=== PATIENT | male | born 1950 | race Caucasian/White ===

== ENCOUNTER → 2018-07-13 07:27 | Outpatient (CLI) | payer MEDICARE, OTHER, SELFPAY ==
[2018-07-13 07:44] LABS: Bacteria Urine None Seen; RBC Urine None Seen (0-5/HPF); WBC Urine None Seen (0-5/HPF)
[2018-07-13 09:01] LABS: Add Manual Diff / Slide Review NO; Hematocrit 41.4 % (41-53); Hemoglobin 14.1 g/dL (13.5-17.5); Lymphocytes Percent Auto 32.5 % (25-40); Mean Corpuscular HGB Conc 34.1 % (30-36); Monocytes Percent Auto 14.7 % (3-14); Neutrophils Absolute Auto 1800 /uL (3000-5900); Neutrophils Percent Auto 49.8 % (50-75); Platelet Count 187 X10^3/uL (150-400); Red Blood Cell Count 4.71 X10^6/uL (4.5-5.9); Red Cell Distribution Width 13.7 % (11.6-14.8); White Blood Cell Count 3.6 X10^3/uL (4.5-11.0)
[2018-07-13 09:06] LABS: Appearance Urine UA CLEAR; Bilirubin Urine UA NEGATIVE (NEGATIVE); Color Urine UA YELLOW; Glucose Urine UA NEGATIVE (Normal); Ketones Urine UA NEGATIVE (NEGATIVE); Leukocyte Esterase Urine UA NEGATIVE (NEGATIVE); Nitrite Urine UA Negative (Negative); Occult Blood Urine UA NEGATIVE (Negative); Protein Urine UA NEGATIVE (Negative); Urobilinogen Urine UA 0.2 E.U./dL (0.2); pH Urine UA 6.5 (4.5-8.0)
[2018-07-13 09:14] LABS: Culture Indicated Urine Cult Not Indicated; Urine Comments Microscopic Normal
[2018-07-13 09:21] LABS: Hemoglobin A1C% w Est Avg Glu 5.2 % (4.0-6.0)
[2018-07-13 09:28] LABS: BUN Creatinine Ratio 21.1 (6-22); Blood Urea Nitrogen 19 mg/dL (9-20); Calcium 9.3 mg/dL (8.4-10.2); Carbon Dioxide 30 mmol/L (22-32); Chloride 104 mmol/L (98-107); Estimated Glomerular Filt Rate > 60.0 mL/min (>60); Glucose 91 mg/dL (80-110); HEMOLYSIS < 15 (0-50); Potassium 4.2 mmol/L (3.4-5.1); Sodium 143 mmol/L (137-145)
[2018-07-13 09:47] LABS: Transferrin 218 mg/dL (206-381)
== END ==
PROVIDERS: PCP Internal Medicine; Visit Provider Orthopaedic Surgery
DX: M25.561 Pain in right knee (principal); Z01.812 Encounter for preprocedural laboratory examination; D50.0 Iron deficiency anemia secondary to blood loss (chronic); R73.9 Hyperglycemia, unspecified; N39.0 Urinary tract infection, site not specified; Z01.818 Encounter for other preprocedural examination
CPT/HCPCS: 36415; 80048; 81001; 83036; 84466; 85025; 93005

== ENCOUNTER 2018-09-06 06:10 | Day surgery (SDC) | payer MEDICARE, OTHER, SELFPAY ==
[2018-08-22 08:49] VITALS: BMI 26.9
[2018-09-06] VITALS (18 sets, daily range): BP systolic 74–133; BP diastolic 44–98; PULSE 60–100; RESP 10–18; TEMP 36.3–37; O2SAT 94–100; BMI 26.4; BMI 24.3
--- NOTE | 2018-09-06 06:00 | DI.RAD.S_ITS ---
PROCEDURE: XR KNEE RT 1TO2V INDICATIONS: post operative right knee TECHNIQUE: 2 view(s) of the knee acquired. COMPARISON: [facility], [place], XR KNEE ARTHRITIC SERIES RT, 06/01/2018, 7:59. [facility], [place], KNEE 3V LEFT, 09/26/2012, 10:39. FINDINGS: Bones: Patient is status post knee joint arthroplasty. Hardware components are in expected positions. Visualized bony structures are intact. Soft tissues: Overlying postoperative changes are noted. IMPRESSION: Postoperative changes as above. Dictated by: Sendy Fischer M.D. on 09/06/2018 at 10:39 Approved by: Sendy Fischer M.D. on 09/06/2018 at 10:40
[2018-09-06] MEDS: ACETAMINOPHEN 325 MG TABLET 975 MG PO ×3 (06:54→20:27)
[2018-09-06] MEDS: PREGABALIN 75 MG CAPSULE PO (06:54)
[2018-09-06] MEDS: CELECOXIB 200 MG CAPSULE PO (06:54)
[2018-09-06] MEDS: LACTATED RINGERS 1,000 ML 42 ML IV ×2 (07:05→10:13)
--- NOTE | 2018-09-06 07:43 | PM.PREOP ---
Pre-operative Note Interval Note Pre-op Check: Yes History & Physical Reviewed by Physician and Yes Exam Performed Changes: No
--- NOTE | 2018-09-06 07:59 | PM.OP.1 ---
Operative Date/Time/Diagnoses Date of procedure: 09/06/18 Time of procedure: 09:45 Pre-op diagnosis: Right knee osteoarthritis Post-op diagnosis: same Procedure & Clinicians Procedure: Right total knee replacement Same procedure as scheduled: Yes Indications: The patient has had progressively worsening right knee pain with radiographic changes consistent with arthritis. Non-operative management has failed and the patient has requested total knee replacement. The risks, benefits and alternatives to surgery were discussed with the patient prior to proceeding. Risks discussed included, but were not limited to, failure to relieve pain, stiffness, infection, nerve damage, deep venous thrombosis, pulmonary embolism, stroke, coma, heart attack, permanent paralysis and , as well as the potential need for eventual revision of the prosthetic. Surgeon: Peewee Jenkins Air Conditioning Service Technician: Alison Otero Click Yes if Unassisted: No Anesthesia Type: General, Spinal and Local Operative Notes Findings: Severe lateral and patellofemoral osteoarthritis with moderate medial osteoarthritis. In addition sutures from his prior extensor mechanism repair were evident, both in the patellar cut and in the patellar tendon. Closure Type: primary Specimen(s): none sent Implants & Drains: Implants used in this procedure were manufactured by the [employer] and included the BCS II Journey total knee replacement with a size 8 right Oxinium femoral component, 8 right non porous tibial component, 9 mm cross-linked polyethylene tibial insert, and a 38 mm oval Shayy II patellar component. Applied: implant(s) Estimated Blood Loss (mL): 50 Blood products transfused: none Tourniquet time (min): 64 Procedure in detail: The patient was seen in the pre-operative area, where the patient identified the right knee as the operative site and this was marked with my initials. The patient received pre-operative antibiotics, and was taken to the operating room and placed on the operative table in the supine position. After satisfactory anesthesia, a time study technologist out was performed. The right leg was encircled with a tourniquet about the proximal thigh, and the leg was prepared from the toes to the tourniquet with ChloroPrep in the usual fashion and draped through sterile drapes. The leg was elevated and exsanguinated with Eschmark bandage and the tourniquet inflated to 250 mmHg pressure. The knee was approached through an approximately 18 cm incision centered over the patella and carried into the knee through a medial parapatellar arthrotomy. The anterior osteophytes and soft tissues were removed. The rotational landmarks of Staunton's line and the transepicondylar axis were marked on the femur with electrocautery, and intramedullary guide holes for the femur and tibia were created. The distal femoral cut was made in 6 degrees of valgus using the intramedullary guide at the primary cut setting. The proximal tibial cut was then made using the intramedullary guide, taking 9 mm of bone off the less involved side. The extension gap was checked and the rotation of the femoral component confirmed with the gap balancing system. The anterior, posterior and chamfer cuts were then made. The posterior osteophytes and soft tissues were then removed. The posterior capsule was injected with part of a mixture of 60 ml 0.25% Marcaine mixed with 20 ml Exparel and 4 mg of morphine for post-operative pain control. The remainder of this mixture was injected into the capsule and subcutaneous tissues during cement curing. The tibia was prepared with the rotation set by an extra medullary guide. Trial tibial and femoral components were then placed and the intercondylar notch cut through the femoral trial. Range of motion was 0-135 degrees, with good stability throughout the range. The patella was then cut to accommodate the patellar prosthetic. There was no need for a lateral release. The trials were then removed, and the femoral hole plugged with a bone plug. The bone was prepared with pulsatile lavage, and dried with a sponge. Cement was applied and the final prosthetics placed. Excess cement was removed during and after cement curing. After confirming there was no extruded cement posteriorly, the final tibial insert was placed. The knee was copiously irrigated and the tourniquet deflated. Hemostasis was obtained. The capsule was closed with interrupted # 2 polyester suture. The subcutaneous layer was closed with 3-0 Vicryl, and the skin with a running 3-0 V-Lock suture and SteriStrips. An Aquacel Ag dressing was applied and the patient was taken to recovery having tolerated the procedure well. Complications: none Condition: stable Disposition: PACU Plan for aftercare: The patient will be maintained on a standard total knee replacement protocol with weight bearing as tolerated. The patient will receive aspirin and sequential compression devices for DVT prophylaxis. The patient will be discharged home when safe for the home environment.
[2018-09-06] MEDS: CEFAZOLIN 2 GM/100 ML FROZ.PIGGY IV ×3 (08:05→23:46)
--- NOTE | 2018-09-06 08:34 | SUR.OPER ---
Supine on padded OR bed. Pillow under head, arms secured on padded armboards <90 degree abduction. Safety belt across torso. Non-operative leg secured with tape over blanket over lower leg. Operative leg secured in DeMayo/Wil positioner. Foam padded brace at thigh of operative leg.
[2018-09-06] MEDS: TRANEXAMIC ACID 1,000 MG VIAL 1000 MG INJ ×2 (08:43→09:22)
[2018-09-06] MEDS: BUPIVACAINE LIPOSOME 266 MG/20 ML VIAL INJ (08:44)
[2018-09-06] MEDS: BUPIVACAINE 0.25% W/ EPI VIAL 60 ML INJ (08:44)
[2018-09-06] MEDS: MORPHINE 4 MG/ML INJ IM (08:45)
[2018-09-06] MEDS: fentaNYL 100 MCG/2 ML INJ 50 MCG IV ×2 (10:28→10:43)
[2018-09-06] MEDS: MEPERIDINE 50 MG/ML 25 MG IV (10:37)
--- NOTE | 2018-09-06 10:38 | SUR.PHASEI ---
Pt c/o shaking DR Mcmahon at bedside. Demerol 25mg IV ordered given as ordered.
--- NOTE | 2018-09-06 11:21 | PC.NURSE ---
Alex is stable post-op total R knee. Arrived to room at 1100 alert and awake with accompanying him. States R knee discomfort is 4/10. Ice pack in place. Jaya wrap over drsg. is clean/dry/intact. Alex is able to move foot freely, CMS intact and with easily palpable pedal pulse. Currently resting quietly in bed sipping ice water.
[2018-09-06] MEDS: LACTATED RINGERS 1,000 ML 125 ML IV (13:17)
[2018-09-06] MEDS: IBUPROFEN 400 MG TABLET PO (13:19)
--- NOTE | 2018-09-06 14:10 | PT.IIE ---
Current Diagnoses Bilateral primary osteoarthritis of knee (09/06/18) Surgery Performed Operation Date: 09/06/18 07:45 Actual Procedures p Total Knee Arthroplasty(Right) - Peewee Jenkins MD Surgical History (Last Updated 08/22/18 @ 09:04 by Mandi Warren RN) Hx of tonsillectomy (Acute) S/P cervical spinal fusion (Acute 07/31/16) Medical History (Last Updated 08/22/18 @ 09:22 by Mandi Warren RN) Carpal tunnel syndrome of left wrist (Acute ~03/2017) HTN (hypertension) (Acute) Injury of left Achilles tendon (Acute) Left rotator cuff tear (Acute) Right rotator cuff tear (Acute) Rupture of left patellar tendon (Acute) Seasonal allergies (Acute) Physical Therapy Inpatient Evaluation/Re-Eval M1 PT/OT-IP Prior Functional Status Start: 09/06/18 17:08 Freq: NEEDED Status: Active Protocol: Document 09/06/18 14:10 AB (Rec: 09/06/18 17:18 AB [id number]) Medical Review Prior Functional Status Medical History Reviewed Yes Communication able to make needs known Mobility and Gait stated that he is independent with all mobilities and ambulation without AD Social History Household Members spouse Living Arrangements House Number of Floors (Floors) Two Floors Number of Stairs To Enter/Railing? has 2 steps without rails ot enter; pt stays on main level of the house Home Environment High Toilet Tub/Shower Home Equipment Front Wheel Walker Straight Cane Crutches Grab Bars In Shower M2 PT-IP Current Condition Start: 09/06/18 17:08 Freq: NEEDED Status: Active Protocol: Document 09/06/18 14:10 AB (Rec: 09/06/18 17:18 AB [id number]) Physical Therapy Current Condition Current Condition Evaluation Date 09/06/18 Treatment Diagnosis s/p R TKA; difficulty in walking Onset Date 09/06/18 Weight Bearing Status Weight Bearing Status Weight Bear as Tolerated M3 PT-IP Subjective Start: 09/06/18 17:08 Freq: NEEDED Status: Active Protocol: Document 09/06/18 14:10 AB (Rec: 09/06/18 17:18 AB [id number]) Subjective Physical Therapy Visit Type Type Initial Evaluation Visit Start Time 14:10 Visit Stop Time 15:00 Total Visit Minutes 50 Number of LADLE OPERATOR Visits 0 Physical Therapy Visit Comments Patient Comments pt agreeable to do PT Therapy Pain Assessment Pain When Pain Assessed At Rest Pain Present Pain Present Pain Reported Location Right Knee Intensity 2 Scale Used Numeric (1 - 10) Pain Management Techniques Re-positioning Timing of Activity with Medications M4 PT-IP Mobility and Gait Start: 09/06/18 17:08 Freq: NEEDED Status: Active Protocol: Document 09/06/18 14:10 AB (Rec: 09/06/18 17:18 AB [id number]) PT-Bed Mobility Assessment Supine to Sit Supine to Sit Standby Assistance Sit to Supine Sit to Supine Standby Assistance Scooting Scooting to Edge of Bed Standby Assistance PT-Transfer Assessment Sit to and From Stand Sit to and from Stand Standby Assistance Equipment Transfer Assistive Device Gait Belt Front Wheeled Walker Orthotic/Prosthetic Devices or Brace: No Transfers Transfer Destination Chair Toilet Transfer Technique pt ambulated using FWW for transfers Transfer Ability Level of Assist Standby Assistance Comments Mobility Comments pt requested to use the toilet and ambulated to the toilet using FWW SBA and then ambulated out of the toilet to the chair using FWW SBA. Gait Assessment Gait Gait Assistance Required: Standby Assistance Distance (Feet) 75 Able to Maintain Weight Bearing Status Yes During Gait Assistive Devices Assistive Device Gait Belt Front Wheeled Walker Orthotic/Prosthetic Devices or Brace: No Gait Deviations General Gait Pattern Antalgic Decreased Stride Length Decreased Feet Clearance Factors Limiting Gait Function Factors Limiting Gait Function Decreased Strength Pain Poor Balance Comments Gait Comments pt ambulated in the hallway using FWW SBA towards the stairs. Stair Climbing Assessment Evaluation Level of Assist On Stairs Standby Assistance Contact Guard Assistance Devices Stair Climbing Assistive Devices Straight Cane Technique/Endurance Stair Climbing Direction Ascend and Descend Stair Climbing Technique Step to Step Number of Steps Climbed 3 Query Text: Stair Climbing Set # Repetitions (reps) 2 Comments Stair Climbing Comments pt completed up/down steps using bilateral rails SBA and then using SPC requiring CGA and cues. PT-Balance Assessment Sitting Balance and Reactions Static Sitting Balance Ability Good Dynamic Sitting Balance Ability Good Standing Balance and Reactions Static Standing Balance Ability Fair Dynamic Standing Balance Ability Fair Device Used FWW M5 PT-IP Objective Assessments Start: 09/06/18 17:08 Freq: NEEDED Status: Active Protocol: Document 09/06/18 14:10 AB (Rec: 09/06/18 17:18 AB [id number]) Orientation Orientation/Cognition Level of Alertness Alert Orientation Name Age Birthday Month Date Year Day of Week Place Situation Safety Awareness Understands Safety Issues Memory Description No Deficits Noted Gross Range of Motion Lower Extremity ROM Assessment Within Functional Limits Impairments PROM L knee flexion: ~ 90 deg Strength Lower Extremity Strength Assessment Right Impaired Knee 3+/5 M6 PT-IP Treatment Start: 09/06/18 17:08 Freq: NEEDED Status: Active Protocol: Document 09/06/18 14:10 AB (Rec: 09/06/18 17:18 AB [id number]) Physical Therapy Treatment Exercises Exercises Ankle Pumps Heel Slides Education Education Provided Precautions Weight Bearing Status Post-Op Packet Safety M7 PT-IP Assessment and Plan Start: 09/06/18 17:08 Freq: NEEDED Status: Active Protocol: Document 09/06/18 14:10 AB (Rec: 09/06/18 17:18 AB [id number]) PT Summary Assessment and Plan Potential Rehabilitation Potential Good Status of Condition at Evaluation Stable Summary Impairments Pain ROM Strength Balance Coordination Sensation Tone Cognition Bed Mobility Transfers Gait Activity Tolerance Assessment Summary pt requiring SBA to CGA with mobility. pt will have spouse to assist him at home and is set up for outpt PT. pt may go home when medically stable. Goals Bed Mobility Goal Independent Transfer Goal Independent Front Wheeled Walker Gait Goal Independent Front Wheel Walker Gait Distance 200 Other Goals up/down 2 steps without rail using SPC SBA Days to Meet Goals 3 Frequency of Treatment Frequency Of Treatment Twice a Day Treatment Plan Physical Therapy Treatment Plan Bed Mobility Training Transfer Training Gait Training Therapeutic Exercise Balance Retraining Post Op Education Discharge Planning Hot or Cold Pack Neuromuscular Re-ed Coordination Retraining Manual Therapy Other Recommendations and Next Treatment ambulation; stair climbing Focus Recommendations To Nursing Amount of Assist Needed 1 Person Assist Discharge Recommendations PT Discharge Recommendations Home with Assistance Outpatient PT
[2018-09-06] MEDS: LOVASTATIN 20 MG TABLET PO (20:26)
[2018-09-06] MEDS: DOCUSATE 100 MG CAPSULE PO (20:26)
[2018-09-06] MEDS: ASPIRIN EC 81 MG TABLET PO (20:26)
[2018-09-07 03:30] VITALS: BP 109/68; PULSE 63; RESP 19; TEMP 36.6; O2SAT 93
[2018-09-07 07:04] LABS: Hematocrit 38.1 % (41-53); Hemoglobin 12.3 g/dL (13.5-17.5)
[2018-09-07 07:20] VITALS: BP 129/90; PULSE 75; RESP 18; TEMP 36.5; O2SAT 94
--- NOTE | 2018-09-07 07:35 | PM.DS.1 ---
History of Present Illness Date Patient Seen: 09/07/18 Time Patient Seen: 07:35 Chief complaint: total knee arthroplasty right [id number] Narrative: The history and physical examination for this patient are contained in the chart and a previously completed note. Please refer to that note for this information. Discharge Providers Date of admission: 09/06/18 06:10 Primary care physician: Rigoberto Hyman MD Consults: 09/06/18 11:18 Consult to Discharge Planning Routine Comment: Consult to Physical Therapy Evaluate & Treat Comment: Physician Instructions: postop TKA protocol Discharge provider: Peewee Jenkins MD Discharge Date: 09/07/18 Summary Discharge Diagnosis: 1. Right knee osteoarthritis. Hospital Course: The patient was admitted to the hospital and taken directly to the operating room on September 06, 2018 where he underwent a right total knee replacement. He was doing very well postoperatively and on the morning of postoperative day 1 was encountered walking in his room and standing to wash his face. At the time of this dictation it is anticipated he will be able to go home later today. Status at Discharge Cognitive/behavioral status at discharge: Baseline. Functional status at discharge: uses cane/walker Overall status at discharge: patient is progressing back to baseline Time Spent with Patient Less than 30 minutes Exam Vital Signs (past 8 hours): - 09/06/18 23:50 09/07/18 03:30 Temperature 97.8 F 97.9 F Pulse Rate 78 63 Respiratory Rate 18 19 Blood Pressure 131/67 109/68 Pulse Oximetry 96 93 Oxygen Delivery Method Room Air Oxygen Flow Rate 0 Narrative Exam Narrative: Right knee wound is dressed with no drainage on the bandage. Calf is soft. Light touch and motion are intact in the right lower extremity. Objective Labs Result Diagrams: 09/07/18 06:00 Labs: Laboratory Results - last 24 hr 09/07/18 06:00 Hgb 12.3 L Hct 38.1 L Radiographs reveal a well-positioned right total knee arthroplasty. There are no signs of complications. Discharge Plan Discharge Plan Patient Disposition: Home Discharge Med Rec/Prescriptions Prescriptions: New acetaminophen 325 mg Tablet 975 mg PO TID 30 Days Qty: 270 RF: 0 hydrocodone-acetaminophen 5-325 mg Tablet 2 tab PO Q4HR PRN (Reason: Pain, Severe (7-10)) Qty: 40 RF: 0 aspirin 81 mg Tablet,Delayed Release (Dr/Ec) 81 mg PO BID 42 Days Qty: 84 RF: 0 hydroxyzine pamoate 25 mg Capsule 25 mg PO Q6HR PRN (Reason: Nausea) Qty: 40 RF: 0 Continue amlodipine 5 mg Tablet 5 mg PO DAILY RF: 0 ibuprofen 400 mg Tablet 400 mg PO DAILY PRN (Reason: pain) RF: 0 lovastatin 20 mg Tablet 20 mg PO BEDTIME RF: 0 Follow up/Referrals: Rigoberto Hyman MD [Primary Care Provider] - Peewee Jenkins MD [Physician] - 1 Week Provider Discharge Instructions Diet: Diet as Tolerated and Regular Activity: You may weightbear as tolerated on your right lower extremity. Cold/Heat Therapy: Apply ice to the knee for 15 min every hour as needed. Skin/Wound/Dressing Care Report to your healthcare provider any signs of infection, such as:: chills, fever, night sweats, increased pain and unusual drainage Dressing: You may remove the Jaya wrap 3 days after surgery and shower normally. Leave the deeper dressing in place. If the central strip of the deeper dressing becomes saturated with either water or blood please call the office to have it changed. Discharge Data Primary Care Provider: Rigoberto Hyman V Attending Provider: Peewee Jenkins Admit Date/Time: 09/06/18 06:10
[2018-09-07] MEDS: AMLODIPINE 5 MG TABLET PO (07:48)
[2018-09-07] MEDS: ASPIRIN EC 81 MG TABLET PO (07:49)
[2018-09-07] MEDS: DOCUSATE 100 MG CAPSULE PO (07:50)
[2018-09-07] MEDS: IBUPROFEN 400 MG TABLET PO (07:54)
[2018-09-07] MEDS: ACETAMINOPHEN 325 MG TABLET 975 MG PO (07:54)
--- NOTE | 2018-09-07 08:01 | PC.NURSE ---
Addendum entered by Corina Frye R.N. 09/07/18 10:27: 1000-IV removed, PT went well and Pt is tolerating IBuprofen and APAP for pain. D/c home with . Wheeled to private vehicle. Original Note: AM Shift Pt reports minimal pain this AM, accepts Ibuprofen and scheduled APAP. Afebrile, 99% RA, Ambulating in room with FWW and SBA, steady on feet. PP+ CMS+ no concerns at present. Plan to d/c home later today.
--- NOTE | 2018-09-07 10:38 | PT.IPTN ---
Current Diagnoses Bilateral primary osteoarthritis of knee (09/06/18) Surgery Performed Operation Date: 09/06/18 07:45 Actual Procedures p Total Knee Arthroplasty(Right) - Peewee Jenkins MD Physical Therapy Treatment Note M2 PT-IP Current Condition Start: 09/06/18 17:08 Freq: NEEDED Status: Discharge Protocol: Document 09/06/18 14:10 AB (Rec: 09/06/18 17:18 AB [id number]) Physical Therapy Current Condition Current Condition Evaluation Date 09/06/18 Treatment Diagnosis s/p R TKA; difficulty in walking Onset Date 09/06/18 Weight Bearing Status Weight Bearing Status Weight Bear as Tolerated M3 PT-IP Subjective Start: 09/06/18 17:08 Freq: NEEDED Status: Discharge Protocol: Document 09/07/18 10:30 SA (Rec: 09/07/18 10:38 SA [id number]) Subjective Physical Therapy Visit Type Type Treatment Note Visit Start Time 09:15 Visit Stop Time 09:40 Total Visit Minutes 25 Number of DIGESTER OPERATOR Visits 1 Physical Therapy Visit Comments Patient Comments Pt found standing at sink and brushing teeth, agreeable to PT. Therapy Pain Assessment Pain When Pain Assessed During Mobility Pain Present Pain Present Pain Reported Location Right Knee Intensity 1 Scale Used Numeric (1 - 10) Pain Management Techniques Re-positioning Timing of Activity with Medications M4 PT-IP Mobility and Gait Start: 09/06/18 17:08 Freq: NEEDED Status: Discharge Protocol: Document 09/07/18 10:30 SA (Rec: 09/07/18 10:38 SA [id number]) PT-Bed Mobility Assessment Supine to Sit Supine to Sit Standby Assistance Sit to Supine Sit to Supine Standby Assistance Scooting Scooting to Edge of Bed Standby Assistance PT-Transfer Assessment Sit to and From Stand Sit to and from Stand Standby Assistance Equipment Transfer Assistive Device Gait Belt Front Wheeled Walker Orthotic/Prosthetic Devices or Brace: No Transfers Transfer Destination Bed Chair Transfer Technique Stand Step Pivot Transfer Ability Level of Assist Standby Assistance Comments Mobility Comments Pt WBing well through RLE and using FWW and SPC safely. Gait Assessment Gait Gait Assistance Required: Standby Assistance Distance (Feet) 175 Able to Maintain Weight Bearing Status Yes During Gait Assistive Devices Assistive Device Gait Belt Straight Cane Front Wheeled Walker Orthotic/Prosthetic Devices or Brace: No Gait Deviations General Gait Pattern Antalgic Decreased Stride Length Decreased Feet Clearance Comments Gait Comments 75 ambulation in hallway with FWW and SBA. Gait training with SPC and SBA x 100 feet, pt demonstrates correct sequencing and ability to safely use SPC on even surfaces. Stair Climbing Assessment Evaluation Level of Assist On Stairs Standby Assistance Devices Stair Climbing Assistive Devices Straight Cane Technique/Endurance Stair Climbing Direction Ascend and Descend Stair Climbing Technique Step to Step Number of Steps Climbed 3 Query Text: Stair Climbing Set # Repetitions (reps) 2 Comments Stair Climbing Comments Pt demonstrated ability to use SPC only and ascend/descend 3 stairs with step to gait pattern safely, SBA and min cues provided. M5 PT-IP Objective Assessments Start: 09/06/18 17:08 Freq: NEEDED Status: Discharge Protocol: Document 09/06/18 14:10 AB (Rec: 09/06/18 17:18 AB [id number]) Orientation Orientation/Cognition Level of Alertness Alert Orientation Name Age Birthday Month Date Year Day of Week Place Situation Safety Awareness Understands Safety Issues Memory Description No Deficits Noted Gross Range of Motion Lower Extremity ROM Assessment Within Functional Limits Impairments PROM L knee flexion: ~ 90 deg Strength Lower Extremity Strength Assessment Right Impaired Knee 3+/5 M6 PT-IP Treatment Start: 09/06/18 17:08 Freq: NEEDED Status: Discharge Protocol: Document 09/07/18 10:30 SA (Rec: 09/07/18 10:38 SA [id number]) Physical Therapy Treatment Exercises Exercises Ankle Pumps Heel Slides Education Education Provided Precautions Weight Bearing Status Post-Op Packet Safety Other Treatments Other Treatment Performed Education on sleep position, allowing knee to remain straight, performance of exercises correctly and use of resistance. M7 PT-IP Assessment and Plan Start: 09/06/18 17:08 Freq: NEEDED Status: Discharge Protocol: Document 09/07/18 10:30 SA (Rec: 09/07/18 10:38 SA [id number]) PT Summary Assessment and Plan Summary Assessment Summary Pt to d/c home today with , safe on staairs and with use of SPC. REsumes OP PT on Wednesday. Frequency of Treatment Frequency Of Treatment Twice a Day Recommendations To Nursing Amount of Assist Needed 1 Person Assist Discharge Recommendations PT Discharge Recommendations Home with Assistance Outpatient PT
== END 2018-09-07 10:29 | disposition home or self-care (01) ==
LOC: AC 09-07 07:34 → OR 09-07 14:47 → AC 09-10 07:01
PROVIDERS: Family Provider Internal Medicine; PCP Internal Medicine; Visit Provider Orthopaedic Surgery
PROC: 0SRC0JZ Replacement of Right Knee Joint with Synthetic Substitute, Open Approach (ICD-10-PCS; CPT 27447; principal; 2018-09-06 07:45)
DX: M17.11 Unilateral primary osteoarthritis, right knee (principal); M06.9 Rheumatoid arthritis, unspecified; I10 Essential (primary) hypertension; E78.5 Hyperlipidemia, unspecified
CPT/HCPCS: 27447; 36415; 73560; 85014; 85018; 97116; 97161; 97530; C1776; C9290; J0690; J1100; J2175; J2250; J2270; J2274; J2405; J2704; J3010

== ENCOUNTER → 2019-06-20 06:58 | Outpatient (CLI) | payer MEDICARE, OTHER, SELFPAY ==
[2018-09-06 16:16] VITALS: BMI 24.3
[2019-06-20 08:04] LABS: Aspartate Aminotransferase 24 IU/L (17-59); Blood Urea Nitrogen 17 mg/dL (9-20); Calcium 9.7 mg/dL (8.4-10.2); Carbon Dioxide 31 mmol/L (22-32); Chloride 101 mmol/L (98-107); Cholesterol 156 mg/dL (140-199); Estimated Glomerular Filt Rate > 60.0 mL/min (>60); Glucose 87 mg/dL (80-110); HDL Cholesterol 72 mg/dL (40-60); HEMOLYSIS < 15 (0-50); LDL Cholesterol Calculated 65 mg/dL (<100); Potassium 3.8 mmol/L (3.4-5.1); Sodium 141 mmol/L (137-145); Triglycerides 97 mg/dL (35-150)
[2019-06-20 08:33] LABS: Prostate Specific Antigen 4.15 ng/mL (0.10-4.00)
== END ==
PROVIDERS: PCP Internal Medicine; Visit Provider Internal Medicine
DX: I10 Essential (primary) hypertension (principal); E78.2 Mixed hyperlipidemia; N40.0 Benign prostatic hyperplasia without lower urinary tract symptoms
CPT/HCPCS: 36415; 80048; 80061; 84153; 84450

== ENCOUNTER → 2019-06-28 07:00 | Outpatient (CLI) | payer MEDICARE, OTHER, SELFPAY ==
[2018-09-06 16:16] VITALS: BMI 24.3
[2019-06-30 15:11] LABS: PSA Free % 34 % (calc) (> 25); PSA, Total 3.8 ng/mL (< 4.1)
== END ==
PROVIDERS: PCP Internal Medicine; Visit Provider Internal Medicine
DX: R97.20 Elevated prostate specific antigen [PSA] (principal)
CPT/HCPCS: 36415; 84153; 84154

== ENCOUNTER → 2020-01-01 08:24 | Outpatient (CLI) | payer MEDICARE, OTHER, SELFPAY ==
[2018-09-06 16:16] VITALS: BMI 24.3
[2020-01-02 08:27] LABS: PSA Free % 38.1 % (.); PSA, Total 3.1 ng/mL (0.0-4.0)
== END ==
PROVIDERS: PCP Internal Medicine; Referring Provider Internal Medicine; Visit Provider Internal Medicine
DX: L50.9 Urticaria, unspecified (principal)
CPT/HCPCS: 36415; 84153; 84154

== ENCOUNTER → 2020-11-28 14:44 | Outpatient (ROUT) | payer MEDICARE, OTHER, SELFPAY ==
[2018-09-06 16:16] VITALS: BMI 24.3
[2020-11-28 15:03] LABS: Aspartate Aminotransferase 31 IU/L (17-59); BUN Creatinine Ratio 21.7 (6-22); Blood Urea Nitrogen 23 mg/dL (9-20); Calcium 9.3 mg/dL (8.4-10.2); Carbon Dioxide 30 mmol/L (22-32); Chloride 105 mmol/L (98-107); Cholesterol 145 mg/dL (140-199); Estimated Glomerular Filt Rate > 60.0 mL/min (>60); Glucose 102 mg/dL (80-110); HDL Cholesterol 62 mg/dL (40-60); HEMOLYSIS < 15 (0-50); LDL Cholesterol Calculated 64 mg/dL (<100); Potassium 4.1 mmol/L (3.4-5.1); Sodium 139 mmol/L (137-145); Triglycerides 94 mg/dL (35-150)
[2020-11-29 09:54] LABS: PSA Free % 31.2 % (.); PSA, Total 3.4 ng/mL (0.0-4.0)
== END ==
PROVIDERS: PCP Internal Medicine; Visit Provider Internal Medicine
DX: I10 Essential (primary) hypertension (principal); E78.2 Mixed hyperlipidemia; R97.20 Elevated prostate specific antigen [PSA]
CPT/HCPCS: 80048; 80061; 84153; 84154; 84450

== ENCOUNTER → 2021-03-12 07:23 | Outpatient (CLI) | payer MEDICARE, OTHER, SELFPAY ==
[2018-09-06 16:16] VITALS: BMI 24.3
== END ==
PROVIDERS: PCP Internal Medicine; Referring Provider Orthopaedic Surgery; Visit Provider Orthopaedic Surgery
DX: Z01.818 Encounter for other preprocedural examination (principal)
CPT/HCPCS: 93005

== ENCOUNTER → 2021-03-26 07:57 | Outpatient (CLI) | payer MEDICARE, OTHER, SELFPAY ==
[2018-09-06 16:16] VITALS: BMI 24.3
[2021-03-26 12:49] LABS: COVID19 -Nasal RAPID Negative (Negative)
== END ==
PROVIDERS: PCP Internal Medicine; Visit Provider Physician Assistant
DX: Z01.812 Encounter for preprocedural laboratory examination (principal); Z20.822 Contact with and (suspected) exposure to COVID-19
CPT/HCPCS: 87635; C9803

== ENCOUNTER 2021-03-28 11:17 | Day surgery (SDC) | payer MEDICARE, OTHER, SELFPAY ==
[2018-09-06 16:16] VITALS: BMI 24.3
[2021-03-24 13:56] VITALS: BMI 28.5
[2021-03-28] VITALS (9 sets, daily range): BP systolic 119–154; BP diastolic 84–98; PULSE 64–89; RESP 12–17; TEMP 36.3–36.7; O2SAT 93–97; BMI 28.3
[2021-03-28] MEDS: PREGABALIN 75 MG CAPSULE PO (11:54)
[2021-03-28] MEDS: ACETAMINOPHEN 325 MG TABLET 975 MG PO (11:54)
[2021-03-28] MEDS: CELECOXIB 200 MG CAPSULE PO (11:54)
[2021-03-28] MEDS: LACTATED RINGERS 1,000 ML 42 ML IV ×2 (11:55→14:00)
--- NOTE | 2021-03-28 12:46 | PM.PREOP ---
Pre-operative Note COVID-19 COVID-19 status: Negative Result date/Date tested (Pos, Neg/Pending): 03/26/21 Interval Note History & Physical reviewed/Exam performed by Physician: Yes Changes to H&P: No
--- NOTE | 2021-03-28 12:47 | PM.OP.1 ---
Operative Date/Time/Diagnoses Date of procedure: 03/28/21 Time of procedure: 15:51 Pre-op diagnosis: Loosening of right knee patellar prosthesis and right knee loose body. Post-op diagnosis: other (Loosening of right knee patellar prosthesis) Procedure & Clinicians Procedure: Revision of patella of right total knee replacement Same procedure as scheduled: Yes Indications: The patient has had a well-functioning total knee that has developed pain in the anterior knee region with swelling. He has attempted to treat this non operatively but continues to be bothered by the pain and swelling which is limiting his activities. He has agreed to exploration with removal of what appears to be a loose body in the lateral gutter and potential patellar revision or patellectomy after discussion of the risks benefits and alternatives. Risks discussed included but were not limited to: Failure to improve, stiffness, infection, nerve damage, deep venous thrombosis, pulmonary embolism, stroke, myocardial infarction, aspiration pneumonia, permanent paralysis and . Surgeon: Peewee Jenkins Automatic [employer]k Screen Printer: Thuan Cortez Click Yes if Unassisted: No Anesthesia Type: General, Peripheral nerve block and Local Operative Notes Findings: Loose patellar prosthetic Closure Type: primary Specimen(s): none sent Prosthetic devices, grafts, tissues, transplants, or devices: 35 mm oval Shayy II patella from [employer]. Applied: implant(s) Estimated Blood Loss (mL): 25 Tourniquet time (min): 38 Procedure in detail: The patient was seen in the preoperative area where he identified his right knee as the operative site and this was marked with my initials. He was taken to the operating room and placed on the operating room table in the supine position where he underwent the induction of a femoral nerve block and a general anesthetic. He received Ancef preoperatively. A tourniquet was placed about his proximal right thigh. The knee was examined under anesthesia with findings of range of motion from 0-135 degrees with excellent stability throughout the range. There was a large effusion. The leg was prepared with ChloraPrep in the usual fashion and draped through sterile drapes. The leg was elevated and exsanguinated with an Esmarch bandage the tourniquet inflated to 250 mmHg. The anterior incision was excised and skin flaps developed. The knee was entered through a medial parapatellar arthrotomy. Immediately upon entering the knee we encountered a loose patellar prosthetic which was no longer attached to the patella. Cultures were taken from the clear yellow joint fluid. The scar tissue around the patella was trimmed to allow better access to the patella bone. There was no loose body in the lateral gutter but there was a fragment of bone in the capsule which we excised out of the capsule and removed. The patella was measured for thickness and found to be 20 mm in thickness. I took a 5 mm cut leaving 15 mm of patella behind. This gave us a clean flat bone surface for cementing. All cement and plastic were removed by the 5 mm cut. The bone was treated with pulsatile lavage. Four additional 1/8 inch drill holes were created for cement penetration because the bone was extremely hard. Cement was mixed and the new patella applied. There was excellent patellar tracking with no need for lateral release. The wound was copiously irrigated with sterile saline solution. The tourniquet was lowered at 38 minutes of total tourniquet time. Hemostasis was obtained with electrocautery. The wound was closed with #1 Ethibond interrupted sutures. I should note that the prior polyester sutures that had previously been used to close the wound were removed prior to closure. Subcutaneous layer was closed with interrupted 3-0 Vicryl and the skin was closed with a running 3-0 barbed suture and Dermabond. Wound was dressed with an Aquacel Ag dressing and an Jaya wrap. The patient was transferred to the recovery room in good condition having tolerated the procedure well. Complications: none Post-operative Condition: stable Disposition: PACU Plan for aftercare: The patient will be allowed to weight bear as tolerated. He will likely be discharged home this evening. If he is having difficulty standing due to his block he will likely be maintained in the hospital until tomorrow.
[2021-03-28] MEDS: CEFAZOLIN 1 GM VIAL 2 GM IV (14:11)
[2021-03-28] MEDS: TRANEXAMIC ACID 1,000 MG in SODIUM CHLORIDE 0.9% 100 ML 200 ML IV (14:12)
--- NOTE | 2021-03-28 14:24 | P.PCN_ITS ---
Procedures Date/Time Date of procedure: 03/28/21 Time of procedure: 14:02 Nerve Block Time out performed: Yes Local anesthetic used: bupivacaine 0.5% Location of anesthetic used: adductor canal Amount of anesthesia used (mL): 30 Nerve blocks: femoral (adductor canal) Procedure successful: Yes Patient tolerated procedure: well and no complications Complications: none Additional comments: Adductor canal nerve block performed for post-op pain contr ol at surgeon request. Patient was positioned with IV, O2, monitors and rescue meds available. Prepped and timeout performed. Target identified with continuous ultrasound guidance. 30 mL of bupivicaine 0.5% was injected perineurally with intermittent aspiration and injection. No blood, no parest hesias, no acute complications.
--- NOTE | 2021-03-28 14:26 | SUR.OPER ---
Supine on padded OR bed. Pillow under head, arms secured on padded armboards <90 degree abduction. Safety belt across torso. Non-operative leg secured with tape over blanket over lower leg. Operative leg secured in [employer] positioner. Foam padded brace at thigh of operative leg.
[2021-03-28] MEDS: BUPIVACAINE 0.25% (PF) VIAL 30 ML INJ (14:45)
--- NOTE | 2021-03-28 16:15 | SUR.PHASEI ---
AMBULATION TRIAL: PATIENT ABLE TO AMBULATE FROM RECOVERY ROOM TO BR IN PRE-OP AREA WITHOUT LEG BUCKLING W/ FWW, STEADY ON FEET WITH ADEQUATE PAIN CONTROL 4/10 DESCRIBED AN ACHE AND TOLERABLE. CMS INTACT.
[2021-03-28] MEDS: HYDROCODONE/ACET 5/325 TABLET 1 TAB PO (16:32)
== END 2021-03-28 16:45 | disposition home or self-care (01) ==
LOC: OR 11:19 → AC 11:21
PROVIDERS: PCP Internal Medicine; Referring Provider Orthopaedic Surgery; Visit Provider Orthopaedic Surgery
PROC: 0SRC0JZ Replacement of Right Knee Joint with Synthetic Substitute, Open Approach (ICD-10-PCS; CPT 27447; principal; 2021-03-28 13:15)
DX: T84.032A Mechanical loosening of internal right knee prosthetic joint, initial encounter (principal); Z96.651 Presence of right artificial knee joint; M17.12 Unilateral primary osteoarthritis, left knee; I10 Essential (primary) hypertension
CPT/HCPCS: 27486; 87070; 87075; 87205; C1776; J0690; J1100; J2405; J2704

== ENCOUNTER 2021-09-30 02:19 | Emergency (ER) | payer MEDICARE, OTHER, SELFPAY ==
[2018-09-06 16:16] VITALS: BMI 24.3
[2021-09-30] VITALS (16 sets, daily range): BP systolic 72–182; BP diastolic 50–113; PULSE 57–86; RESP 20–29; TEMP 36.4–37.1; O2SAT 94–100; BMI 27.6
[2021-09-30] MEDS: HYDRALAZINE 20 MG/ML VIAL 10 MG IV (02:45)
--- NOTE | 2021-09-30 02:45 | ED_ITS ---
HPI - Epistaxis General Chief complaint: Nasal Problem Stated complaint: nosebleed x1 hour Time Seen by Provider: 09/30/21 02:43 Source: patient Mode of arrival: Ambulatory History of Present Illness HPI Narrative: Patient here with . Complaints of epistaxis left naris. Started 1 hour ago. Denies any headache dizziness. Denies any blood thinners. Blood pressure noted. He states his blood pressure baseline systolic usually 130. Usually takes his blood pressure medication in the morning. No recent changes in his medications. No black or bloody stools. No environmental changes/dry air/Dehumidifier. Related Data Home Medications Medication Instructions Recorded Confirmed amlodipine 5 mg tablet 5 mg PO DAILY 08/22/18 03/28/21 lovastatin 20 mg tablet 20 mg PO BEDTIME 08/22/18 03/28/21 aspirin 81 mg tablet,delayed 81 mg PO DAILY 03/24/21 03/28/21 release chlorpheniramine maleate 4 mg 4 mg PO DAILY 03/24/21 03/28/21 tablet (ChlorTabs) ibuprofen 200 mg capsule 400 mg PO BID PRN 03/24/21 03/28/21 Previous Rx's Medication Instructions Recorded hydrocodone 5 mg-acetaminophen 325 1 tab PO Q4HR PRN #40 tab 03/28/21 mg tablet Allergies Allergy/AdvReac Type Severity Reaction Status Date / Time benzoin [BENZOIN] Allergy Severe RASH Verified 03/28/21 12:03 oxycodone AdvReac Severe makes me Verified 03/28/21 12:03 feel goofy Review of Systems Review of Systems Narrative: GENERAL: Denies chills, fatigue, malaise, fever, sweats. HEENT: Denies sinus pain, ear pain, sore throat, positive epistaxis RESPIRATORY: Denies dyspnea, cough CARDIOVASCULAR: Denies chest pain, palpitations GASTROINTESTINAL: Denies nausea, vomiting, abdominal pain : Denies dysuria, frequency, hematuria MUSCULOSKELETAL: denies muscle or bony pain SKIN: Denies rash, skin lesions NEUROLOGIC: Denies weakness, numbness ROS Unobtainable: All systems reviewed & are unremarkable except as noted in HPI and below Patient History Medical History (Updated 10/15/21 @ 00:00 by ) Carpal tunnel syndrome of left wrist (~03/2017) HTN (hypertension) Injury of left Achilles tendon Left rotator cuff tear Right rotator cuff tear Rupture of left patellar tendon Seasonal allergies Surgical History (Updated 03/24/21 @ 14:02 by Mandi Warren RN) History of arthroplasty of right knee (08/2018) Hx of tonsillectomy S/P cervical spinal fusion (07/31/16) Social History household members: spouse Smoking Status: Former smoker alcohol intake: current Smoking Status: Former smoker alcohol intake frequency: 0-2 drinks per day Substance Use Type: does not use Exam Narrative Exam Narrative: GENERAL: in no distress, not toxic not dyspneic HEAD: Normocephalic. EYES: Pupils equal round No scleral icterus. ENT: Mucous membranes moist. Blood in posterior pharynx. No active bleeding in the right naris. Left naris there is a medial anterior area of bleeding. Rhino rocket placed for hemostasis. 4.5 cm rhino rocket NEURO: AOx4. SKIN: Warm and dry PSYCH: Not anxious, is cooperative Initial Vital Signs Initial Vital Signs: Vital Signs Temperature 97.6 F 09/30/21 02:26 Pulse Rate 71 09/30/21 02:26 Respiratory Rate 20 09/30/21 02:26 Blood Pressure 182/113 H 09/30/21 02:26 Pulse Oximetry 98 09/30/21 02:26 Course Course Course Narrative: Patient had brief lowering his blood pressure after hydralazine but responded very well with IV fluids. 500 mL of normal saline without complication. Blood pressure improved 132/80. Orders Ordered: Discontinued Medications Hydralazine HCl (Hydralazine 20 Mg/Ml Vial) 10 mg IV NOW ONE Stop: 09/30/21 02:43 Last Admin: 09/30/21 02:45 Dose: 10 mg Documented by: DUANE Sodium Chloride (Normal Saline 0.9%) 1,000 mls @ 1,000 mls/hr IV BOLUS ONE Stop: 09/30/21 04:39 Last Infusion: 09/30/21 04:48 Dose: 0 mls/hr Documented by: Infusion: 09/30/21 03:41 Dose: 0 mls/hr Documented by: Admin: 09/30/21 03:21 Dose: 1,000 mls/hr Documented by: REJI Ondansetron HCl (Ondansetron 4 Mg/2 Ml Inj) 4 mg IV NOW ONE Stop: 09/30/21 03:29 Last Admin: 09/30/21 03:28 Dose: 4 mg Documented by: REJI Oxymetazoline HCl (Oxymetazoline Nasal [place] 15 Ml) 2 sprays NASAL NOW ONE Stop: 09/30/21 04:06 Last Admin: 09/30/21 04:12 Dose: 2 sprays Documented by: REJI Reevaluation(s) Reevaluation #1: Blood pressure improved to 117/75. Epistaxis has improved with the rhino rocket and blood pressure improvement. Continue to monitor. Laboratory studies resulted in reassuring as well. Reviewed with patient and . Time: 03:15 Reevaluation #2: Reassessment of blood pressure and epistaxis. Rhino rocket removed. No bleeding. No blood in posterior pharynx. Blood pressure 132/80. Afrin spray applied to left nostril as additional preventive measure. Gargling water, no blood in posterior pharynx. Drinking water without difficulty Time: 04:15 Reevaluation #3: Up and walking in hallway into the bathroom. No dizziness. No epistaxis. Time: 04:33 Vital Signs Vital signs: Vital Signs - 8 hr 09/30/21 02:26 09/30/21 02:45 09/30/21 03:01 Temperature 97.6 F Pulse Rate 71 Respiratory Rate 20 Blood Pressure 182/113 H 171/99 H 142/89 H Pulse Oximetry 98 09/30/21 03:10 09/30/21 03:11 09/30/21 03:21 Temperature Pulse Rate 62 57 L Respiratory Rate Blood Pressure 117/75 72/50 L Pulse Oximetry 98 09/30/21 03:25 09/30/21 03:29 09/30/21 03:30 Temperature Pulse Rate 57 L 62 65 Respiratory Rate Blood Pressure 92/63 92/63 Pulse Oximetry 100 99 09/30/21 03:31 09/30/21 03:41 09/30/21 03:50 Temperature Pulse Rate 63 86 69 Respiratory Rate 29 H Blood Pressure 138/90 150/98 H 145/68 H Pulse Oximetry 99 99 99 09/30/21 04:00 09/30/21 04:10 09/30/21 04:15 Temperature Pulse Rate 61 66 62 Respiratory Rate 21 22 24 Blood Pressure 135/78 132/80 126/81 Pulse Oximetry 99 94 95 MDM - Epistaxis Differential Diagnosis Differential diagnosis: Likely anterior epistaxis and other (Hypertension) Lab Data Result diagrams: 09/30/21 02:46 Labs: Lab Results 09/30/21 09/30/21 Range/Units 02:46 02:46 WBC 6.5 (4.5-11.0) X10^3/uL RBC 5.23 (4.5-5.9) X10^6/uL Hgb 15.6 (13.5-17.5) g/dL Hct 46.8 (41-53) % MCV 89.4 (80-100) fL MCH 29.8 (26-34) PG MCHC 33.3 (30-36) % RDW 13.9 (11.6-14.8) % Plt Count 176 (150-400) X10^3/uL Neut % (Auto) 52.7 (50-75) % Lymph % (Auto) 32.7 (25-40) % [place] % (Auto) 11.2 (3-14) % Eos % (Auto) 2.4 (2-4) % Baso % (Auto) 1.0 (0-2) % Neut # (Auto) 3500 (8916-7660) /uL Lymph # (Auto) 2100 (4390-3491) /uL [place] # (Auto) 700 (0-900) /uL Eos # (Auto) 200 (0-450) /uL Baso # (Auto) 100 (0-100) /uL PT 10.6 (10.1-12.7) SECONDS INR 1.0 (0.9-1.3) APTT 34 (26.4-36.2) SECONDS MDM Narrative Medical decision making narrative: Appropriate for discharge home. Epistaxis likely due to elevated blood pressure. Neurovascularly intact otherwise. No neuro complaints. Return precautions reviewed with patient and . Referral for otolaryngology given. Patient does have family doctor to follow up with for review of changes in blood pressure medication. Discharge Plan Departure Patient Disposition: Home Clinical Impression: Epistaxis Activity Restrictions/Additional Instructions: You may take your amlodipine later this morning. Call his office this morning for office recheck this week. Be sure to contact your family doctor for re- evaluation of your blood pressure medications for better control this week. At this time, recommend taking your amlodipine 1 tablet in the morning and 1 tablet in the evening. No ibuprofen or aspirin for the next 48 hours. Avoid scratching your nose. Prescriptions: No Action chlorpheniramine maleate [ChlorTabs] 4 mg Tablet 4 mg PO DAILY 0RF ibuprofen 200 mg Capsule 400 mg PO BID PRN (Reason: Pain) 0RF aspirin 81 mg Tablet,Delayed Release (Dr/Ec) 81 mg PO DAILY 0RF hydrocodone-acetaminophen 5-325 mg Tablet 1 tab PO Q4HR PRN (Reason: Pain, Moderate (4-6)) Qty: 40 0RF amlodipine 5 mg Tablet 5 mg PO DAILY 0RF lovastatin 20 mg Tablet 20 mg PO BEDTIME 0RF Referrals: Cricket Ratliff MD [Physician] - Rigoberto Hyman MD [Primary Care Provider] -
[2021-09-30 02:54] LABS: Add Manual Diff / Slide Review NO; Basophils Absolute Auto 100 /uL (0-100); Eosinophils Absolute Auto 200 /uL (0-450); Eosinophils Percent Auto 2.4 % (2-4); Hematocrit 46.8 % (41-53); Hemoglobin 15.6 g/dL (13.5-17.5); Lymphocytes Absolute Auto 2100 /uL (1100-4500); Lymphocytes Percent Auto 32.7 % (25-40); Mean Corpuscular HGB Conc 33.3 % (30-36); Mean Corpuscular Hemoglobin 29.8 PG (26-34); Mean Corpuscular Volume 89.4 fL (80-100); Monocytes Absolute Auto 700 /uL (0-900); Monocytes Percent Auto 11.2 % (3-14); Neutrophils Absolute Auto 3500 /uL (1500-7000); Neutrophils Percent Auto 52.7 % (50-75); Platelet Count 176 X10^3/uL (150-400); Red Blood Cell Count 5.23 X10^6/uL (4.5-5.9); Red Cell Distribution Width 13.9 % (11.6-14.8); White Blood Cell Count 6.5 X10^3/uL (4.5-11.0)
[2021-09-30 03:03] LABS: Prothrombin Time 10.6 SECONDS (10.1-12.7)
[2021-09-30 03:06] LABS: PTT Partial Thromboplastin Tim 34 SECONDS (26.4-36.2)
[2021-09-30] MEDS: SODIUM CHLORIDE 0.9% 1,000 ML 1000 ML IV (03:21)
[2021-09-30] MEDS: ONDANSETRON 4 MG/2 ML INJ IV (03:28)
[2021-09-30] MEDS: OXYMETAZOLINE NASAL SPRAY 15 ML 2 SPRAYS NASAL (04:12)
--- NOTE | 2021-09-30 04:13 | PC.NURSE ---
Pt became hypotensive nad nauseated shortly after hydralazine administration. NS bolus hung per and HOB lowered. Dr Anaya notified, order received for zofran. Pt reports feeling better now with BP stable.
== END 2021-09-30 04:40 | disposition home or self-care (01) ==
PROVIDERS: Emergency Provider Emergency Medicine; PCP Internal Medicine
DX: R04.0 Epistaxis (principal); I10 Essential (primary) hypertension; Z87.891 Personal history of nicotine dependence
CPT/HCPCS: 36415; 85025; 85610; 85730; 96374; 96375; 99284; A9270; J0360; J2405

== ENCOUNTER → 2022-01-30 09:07 | Outpatient (CLI) | payer MEDICARE, OTHER, SELFPAY ==
[2018-09-06 16:16] VITALS: BMI 24.3
--- NOTE | 2022-01-30 | DI.MRI.S_ITS ---
PROCEDURE: MR SHOULDER RT WO CON INDICATIONS: eval for recurrent rotator cuff tear TECHNIQUE: Noncontrast oblique coronal T2 fast spin echo with fat saturation, oblique sagittal T1 spin echo and T2 fast spin echo with fat saturation, axial T1 spin echo and T2 fast spin echo with fat saturation through the shoulder. COMPARISON: [facility] [place], CR, XR SHOULDER 2+ VIEWS RIGHT, 11/06/2021, 9:38. FINDINGS: Image quality: Excellent. Rotator cuff: Postsurgical changes are seen from prior rotator cuff tendon repair. There is thinning of the distal supraspinatus and infraspinatus tendons, although attenuated fibers appear to be continuous with the distal fixation device. Focal full-thickness fluid-filled defect measuring 0.6 cm in anterior-posterior dimension is seen adjacent to the posterosuperior humeral head approximately 1.7 cm medial to the surgical fixation device, which could represent separation of tendon fibers related to the prior surgery versus a small full-thickness tear. There is moderate to severe atrophy and grade 3 fatty infiltration of the supraspinatus and infraspinatus muscles. The distal teres minor tendon is intact. There is high-grade partial articular sided tearing of the subscapularis tendon at the mid to superior insertion superimposed on chronic tendinosis. There is mild atrophy and grade 2-3 fatty infiltration of the superior subscapularis muscle. Bones and bursae: No acute trabecular bone injury. Surgical fixation devices are seen at the lateral humeral head. The jonathan head is high riding with narrowing of the acromiohumeral interval. Moderate to high-grade cartilage loss is seen at the superior to superomedial humeral head. There is generalized cartilage thinning in the glenoid. Small marginal osteophytes are present at the glenohumeral joint. Moderate degenerative changes are seen in the acromioclavicular joint with subchondral cystic changes and marginal osteophyte formation. Cystic changes are also seen at the inferior acromion. A small glenohumeral effusion communicates with the subacromial/subdeltoid bursa. Capsule and soft tissues: There is diffuse chronic labral tearing and degeneration. The intra-articular portion of the biceps long head tendon is not seen, possibly related to prior surgery or chronic tearing. No capsular defect is seen. IMPRESSION: 1. Postsurgical changes from prior rotator cuff tendon repair. A small full-thickness fluid-filled defect is seen in the infraspinatus tendon approximately 1.7 cm proximal to the fixation device that could represent separation of tendon fibers related to the prior surgery versus a recurrent small full-thickness tear. The remaining supraspinatus and infraspinatus tendon fibers are attenuated but appear contiuous with the distal fixation device. The humeral head is high riding with narrowing of the acromiohumeral interval. Moderate atrophy and grade 3 fatty infiltration of the supraspinatus and infraspinatus muscles is noted. 2. High-grade partial articular sided tearing of the subscapularis tendon at the mid to superior insertion superimposed on chronic tendinosis. Mild atrophy and grade 2-3 fatty infiltration of the subscapularis muscle. 3. Nonvisualization of the biceps long head tendon is most likely related to the prior surgery or chronic tendon tearing. 4. Diffuse labral degeneration and chronic degenerative tearing. 5. Moderate glenohumeral osteoarthrosis with areas of full-thickness cartilage loss, subchondral edema, marginal osteophyte formation. 6. Moderate acromioclavicular osteoarthrosis. Dictated by: Khari Santiago M.D. on 01/30/2022 at 10:33 Approved by: Khari Santiago M.D. on 01/30/2022 at 10:46
== END ==
PROVIDERS: PCP Internal Medicine; Referring Provider Orthopaedic Surgery; Visit Provider Orthopaedic Surgery
DX: M75.121 Complete rotator cuff tear or rupture of right shoulder, not specified as traumatic (principal); M19.011 Primary osteoarthritis, right shoulder; S43.491A Other sprain of right shoulder joint, initial encounter
CPT/HCPCS: 73221

== ENCOUNTER → 2022-08-12 08:12 | Outpatient (CLI) | payer MEDICARE, OTHER, SELFPAY ==
[2018-09-06 16:16] VITALS: BMI 24.3
[2022-08-12 08:35] LABS: Add Manual Diff / Slide Review NO; Basophils Absolute Auto 100 /uL (0-100); Eosinophils Absolute Auto 100 /uL (0-450); Eosinophils Percent Auto 1.4 % (2-4); Hematocrit 46.1 % (41-53); Hemoglobin 15.7 g/dL (13.5-17.5); Lymphocytes Absolute Auto 1400 /uL (1100-4500); Lymphocytes Percent Auto 27.3 % (25-40); Mean Corpuscular Hemoglobin 30.1 PG (26-34); Mean Corpuscular Volume 88.3 fL (80-100); Monocytes Absolute Auto 600 /uL (0-900); Monocytes Percent Auto 11.6 % (3-14); Neutrophils Absolute Auto 3000 /uL (1500-7000); Neutrophils Percent Auto 58.7 % (50-75); Platelet Count 177 X10^3/uL (150-400); Red Blood Cell Count 5.22 X10^6/uL (4.5-5.9); Red Cell Distribution Width 13.6 % (11.6-14.8); White Blood Cell Count 5.1 X10^3/uL (4.5-11.0)
[2022-08-12 08:41] LABS: Hemoglobin A1C% w Est Avg Glu 5.3 % (4.0-6.0)
[2022-08-12 08:47] LABS: Alanine Aminotransferase 25 IU/L (<50); Albumin 4.3 g/dL (3.5-5.0); Albumin Globulin Ratio 1.5 (1.0-2.8); Alkaline Phosphatase 112 U/L (38-126); Aspartate Aminotransferase 31 IU/L (17-59); BUN Creatinine Ratio 15.2 (6-22); Bilirubin Total 0.9 mg/dL (0.2-1.3); Blood Urea Nitrogen 16 mg/dL (9-20); Calcium 9.2 mg/dL (8.4-10.2); Carbon Dioxide 29 mmol/L (22-32); Chloride 103 mmol/L (98-107); Cholesterol 144 mg/dL (140-199); Estimated Glomerular Filt Rate > 60 mL/min (>60); Globulin 2.9 g/dL (1.7-4.1); Glucose 100 mg/dL (80-110); HDL Cholesterol 59 mg/dL (40-60); HEMOLYSIS < 15 (0-50); LDL Cholesterol Calculated 65 mg/dL (<100); Sodium 140 mmol/L (137-145); Total Protein 7.2 g/dL (6.3-8.2); Triglycerides 98 mg/dL (35-150)
[2022-08-12 09:16] LABS: Prostate Specific Antigen 4.66 ng/mL (0.10-4.00)
[2022-08-12 09:51] LABS: TSH w/ Reflex to FT4 2.13 uIU/mL (0.47-4.68)
== END ==
PROVIDERS: PCP Internal Medicine; Referring Provider Orthopaedic Surgery; Visit Provider Orthopaedic Surgery
DX: Z01.818 Encounter for other preprocedural examination (principal); E78.2 Mixed hyperlipidemia; N40.0 Benign prostatic hyperplasia without lower urinary tract symptoms; I10 Essential (primary) hypertension; R73.9 Hyperglycemia, unspecified; M25.511 Pain in right shoulder; Z01.812 Encounter for preprocedural laboratory examination
CPT/HCPCS: 36415; 80053; 80061; 83036; 84153; 84443; 85025; 93005

== ENCOUNTER → 2022-09-14 07:41 | Outpatient (CLI) | payer MEDICARE, OTHER, SELFPAY ==
[2018-09-06 16:16] VITALS: BMI 24.3
[2022-09-14 13:00] LABS: Influenza A - CEPHEID Flu A NEGATIVE (NEGATIVE); Influenza B - CEPHEID Flu B NEGATIVE (NEGATIVE); Respiratory Syncytial Virus Negative (Negative)
[2022-09-14 13:01] LABS: COVID-19 CEPHEID 4-PLEX PCR Negative (Negative)
== END ==
PROVIDERS: PCP Internal Medicine; Visit Provider Nurse Practitioner Family
DX: R68.83 Chills (without fever) (principal); Z20.828 Contact with and (suspected) exposure to other viral communicable diseases
CPT/HCPCS: 0241U

== ENCOUNTER → 2022-09-23 11:31 | Outpatient (CLI) | payer MEDICARE, OTHER, SELFPAY ==
[2018-09-06 16:16] VITALS: BMI 24.3
[2022-09-23 12:53] LABS: Add Manual Diff / Slide Review NO; Basophils Absolute Auto 0 /uL (0-100); Basophils Percent Auto 0.6 % (0-2); Eosinophils Absolute Auto 100 /uL (0-450); Eosinophils Percent Auto 1.2 % (2-4); Hematocrit 40.7 % (41-53); Hemoglobin 13.7 g/dL (13.5-17.5); Lymphocytes Absolute Auto 1200 /uL (1100-4500); Lymphocytes Percent Auto 20.9 % (25-40); Mean Corpuscular HGB Conc 33.6 % (30-36); Mean Corpuscular Hemoglobin 29.7 PG (26-34); Mean Corpuscular Volume 88.5 fL (80-100); Monocytes Absolute Auto 600 /uL (0-900); Monocytes Percent Auto 10.1 % (3-14); Neutrophils Absolute Auto 3800 /uL (1500-7000); Neutrophils Percent Auto 67.2 % (50-75); Platelet Count 464 X10^3/uL (150-400); Red Cell Distribution Width 13.7 % (11.6-14.8); White Blood Cell Count 5.7 X10^3/uL (4.5-11.0)
[2022-09-23 13:22] LABS: Erythrocyte Sedimentation Rate 43 MM/HR (0-15)
[2022-09-23 16:56] LABS: Alanine Aminotransferase 146 IU/L (<50); Albumin 3.7 g/dL (3.5-5.0); Albumin Globulin Ratio 1.2 (1.0-2.8); Alkaline Phosphatase 150 U/L (38-126); Aspartate Aminotransferase 93 IU/L (17-59); BUN Creatinine Ratio 15.1 (6-22); Bilirubin Total 0.3 mg/dL (0.2-1.3); Blood Urea Nitrogen 16 mg/dL (9-20); C-Reactive Protein Quant 4.4 mg/dL (<1.0); Calcium 8.9 mg/dL (8.4-10.2); Carbon Dioxide 30 mmol/L (22-32); Chloride 101 mmol/L (98-107); Estimated Glomerular Filt Rate > 60 mL/min (>60); Globulin 3.2 g/dL (1.7-4.1); Glucose 87 mg/dL (80-110); HEMOLYSIS < 15 (0-50); Potassium 4.3 mmol/L (3.4-5.1); Sodium 140 mmol/L (137-145); Total Protein 6.9 g/dL (6.3-8.2)
== END ==
PROVIDERS: PCP Internal Medicine; Referring Provider Internal Medicine; Visit Provider Internal Medicine
DX: E78.2 Mixed hyperlipidemia (principal); I10 Essential (primary) hypertension; Z20.9 Contact with and (suspected) exposure to unspecified communicable disease
CPT/HCPCS: 36415; 80053; 85025; 85651; 86140; 86617

== ENCOUNTER 2022-10-01 09:05 | Emergency (ER) | payer MEDICARE, OTHER, SELFPAY ==
[2018-09-06 16:16] VITALS: BMI 24.3
[2022-10-01] VITALS (11 sets, daily range): BP systolic 116–136; BP diastolic 71–86; PULSE 64–82; RESP 15; TEMP 36.8; O2SAT 96–99; BMI 26.3
--- NOTE | 2022-10-01 10:01 | DI.RAD.S_ITS ---
PROCEDURE: XR CHEST 1V INDICATIONS: chest pain TECHNIQUE: One view of the chest was acquired. COMPARISON: None. FINDINGS: Surgical changes and devices: None. Lungs and pleura: Lungs are clear. No pleural effusions or pneumothorax. Mediastinum: Mediastinal contours appear normal. Heart size is normal. Bones and chest wall: No suspicious bony lesions. Overlying soft tissues appear unremarkable. IMPRESSION: No acute cardiopulmonary findings. Dictated by: Willa Hollis M.D. on 10/01/2022 at 10:38 Approved by: Willa Hollis M.D. on 10/01/2022 at 10:39
[2022-10-01 10:09] LABS: Add Manual Diff / Slide Review NO; Basophils Absolute Auto 0 /uL (0-100); Basophils Percent Auto 0.5 % (0-2); Eosinophils Absolute Auto 0 /uL (0-450); Eosinophils Percent Auto 0.2 % (2-4); Hematocrit 41.5 % (41-53); Hemoglobin 14.1 g/dL (13.5-17.5); Lymphocytes Absolute Auto 1100 /uL (1100-4500); Lymphocytes Percent Auto 10.9 % (25-40); Mean Corpuscular HGB Conc 33.9 % (30-36); Mean Corpuscular Hemoglobin 29.9 PG (26-34); Mean Corpuscular Volume 88.1 fL (80-100); Monocytes Absolute Auto 1400 /uL (0-900); Neutrophils Absolute Auto 7700 /uL (1500-7000); Neutrophils Percent Auto 74.4 % (50-75); Platelet Count 317 X10^3/uL (150-400); Red Blood Cell Count 4.71 X10^6/uL (4.5-5.9); Red Cell Distribution Width 14.1 % (11.6-14.8); White Blood Cell Count 10.3 X10^3/uL (4.5-11.0)
[2022-10-01 10:30] LABS: INR 1.3 (0.9-1.3); Prothrombin Time 15.3 SECONDS (10.1-12.7)
[2022-10-01 10:32] LABS: PTT Partial Thromboplastin Tim 33 SECONDS (26-36)
[2022-10-01 10:40] LABS: Alanine Aminotransferase 32 IU/L (<50); Albumin 3.7 g/dL (3.5-5.0); Albumin Globulin Ratio 1.1 (1.0-2.8); Alkaline Phosphatase 110 U/L (38-126); Aspartate Aminotransferase 21 IU/L (17-59); Bilirubin Total 0.9 mg/dL (0.2-1.3); Blood Urea Nitrogen 24 mg/dL (9-20); Calcium 9.2 mg/dL (8.4-10.2); Carbon Dioxide 26 mmol/L (22-32); Chloride 101 mmol/L (98-107); Creatine Kinase 40 U/L (55-170); Estimated Glomerular Filt Rate 60 mL/min (>60); Globulin 3.3 g/dL (1.7-4.1); Glucose 104 mg/dL (80-110); HEMOLYSIS < 15 (0-50); Lipase 49 U/L (23-300); Magnesium 2.2 mg/dL (1.6-2.3); Potassium 4.4 mmol/L (3.4-5.1); Sodium 135 mmol/L (137-145)
--- NOTE | 2022-10-01 10:44 | ED_ITS ---
HPI - General Adult General Chief complaint: Dizziness Stated complaint: low blood pressure,rash/bumps,fever,neck pain Time Seen by Provider: 10/01/22 09:32 Source: patient Mode of arrival: Ambulatory History of Present Illness HPI narrative: 72M former smoker with history of hypertension and hyperlipidemia presents with his chief complaint of ongoing nonpruritic, blanching rash on his back and general feeling of malaise. He states that he started having some symptoms of an itchy, perhaps slightly painful rash on the back of his neck and a subjective fever just after Thanksgiving and presented to the walk-in clinic and was given what sounds like a topical antibiotic but was able to find an old prescription of Augmentin at home which he took and noticed improvement of his overall feeling and states the rash improved. He had followed up with his primary care provider on 09/21 and had a thorough history and physical exam. It was discussed that [place] and may have had a tick bite and reports that there was an engorged tick on 1 of his pets. Based on this labs were ordered, including a Lyme titer and patient was transitioned to doxycycline. In the aftermath his rash has become worse again but still not painful and not itchy. He denies any oral involvement. He is not dizzy nor weak or li ghtheaded. He has no chest pain or shortness of breath. He has no nausea, vomiting or diarrhea but does admittedly have a poor appetite and feels generally ?punky?. He reports a low blood pressure at home this morning and after consultation with the nurse at his primary care office was sent here for evaluation Related Data Home Medications Medication Instructions Recorded Confirmed amlodipine 5 mg tablet 5 mg PO DAILY 08/22/18 09/23/22 lovastatin 20 mg tablet 20 mg PO BEDTIME 08/22/18 09/23/22 ibuprofen 200 mg capsule 400 mg PO BID PRN Pain 03/24/21 09/23/22 chlorpheniramine maleate 4 mg 4 mg PO DAILY PRN Allergies 03/06/22 09/23/22 tablet (ChlorTabs) tramadol 50 mg tablet 50 mg PO DAILY PRN Pain 03/06/22 09/23/22 acetaminophen 500 mg tablet 1,000 mg PO Q6H PRN Pain 08/13/22 09/23/22 Previous Rx's Medication Instructions Recorded triamcinolone acetonide 0.5 % 1 applic topical TID #15 grams 09/14/22 topical ointment doxycycline hyclate 100 mg tablet 100 mg PO BID #14 tabs 09/23/22 Allergies Allergy/AdvReac Type Severity Reaction Status Date / Time benzoin [BENZOIN] Allergy Severe RASH Verified 10/01/22 09:30 mupirocin Allergy Severe ITCHING Verified 10/01/22 09:30 oxycodone AdvReac Severe Alters my Verified 10/01/22 09:30 mental state, I lose concentration Review of Systems Review of Systems Narrative: GENERAL: See HPI HEENT: See HPI RESPIRATORY: Denies dyspnea, cough, wheezing, hemoptysis, sputum. CARDIOVASCULAR: Denies chest pain, palpitations, orthopnea, edema, GASTROINTESTINAL: Denies nausea, vomiting, abdominal pain, diarrhea, constipation, melena. : Denies dysuria, frequency, incontinence, hematuria, urinary retention. MUSCULOSKELETAL: denies weakness, joint pain, or bony pain SKIN: See HPI NEUROLOGIC: Denies weakness, headache, numbness, change in speech, confusion, seizures, incoordination. PSYCHIATRIC: No concerning psychosocial issues. 12 point review of systems is negative except for those stated above Patient History Medical History Allergic rhinitis Carpal tunnel syndrome of left wrist (~03/2017) Cataracts, bilateral (~2007) Chicken pox COVID-19 virus infection (~02/2022) Essential hypertension (~2017) Fractures History of colonic polyps HTN (hypertension) Injury of left Achilles tendon Left rotator cuff tear Measles Medicare annual wellness visit, initial Mixed hyperlipidemia Mumps Overweight Primary osteoarthritis involving multiple joints Primary osteoarthritis, right shoulder Right rotator cuff tear Rupture of left patellar tendon Seasonal allergies Shoulder pain (~2006) Surgical History Anesthesia H/O excision of mass (07/02/22) History of arthroplasty of right knee (09/06/18) History of cataract removal with insertion of prosthetic lens History of orthopedic surgery (03/28/21) History of shoulder surgery Hx of tonsillectomy S/P cervical spinal fusion (07/31/16) Family History Brother Cancer Social History household members: spouse Smoking Status: Former smoker alcohol intake: current Smoking Status: Former smoker alcohol intake frequency: 0-2 drinks per day Substance Use Type: does not use Exam Narrative Exam Narrative: GENERAL: [72] year old patient appears stated age. Well-developed patient, in mild distress. HEAD: Atraumatic. Normocephalic. EYES: Pupils equal round and reactive. Extraocular motions intact. No scleral icterus. No injection or drainage. ENT: Nose without bleeding, purulent drainage. Throat without erythema, tons illar hypertrophy or exudate. Airway patent. NECK: Trachea midline. Non tender CARDIOVASCULAR: Regular rate and rhythm without murmurs, gallops, or rubs. RESPIRATORY: Clear to auscultation. Breath sounds equal bilaterally. No wheezes, rales, or rhonchi. GASTROINTESTINAL: Abdomen soft, non-tender, nondistended. EXTREMITIES: No edema or joint tenderness. BACK: Nontender without deformity or crepitance. No flank tenderness. NEURO: AOx3. SKIN: Multiple quarter-size lesions on his back, nonpruritic or raised, blanching target lesions Initial Vital Signs Initial Vital Signs: Vital Signs Temperature 98.2 F 10/01/22 09:25 Pulse Rate 82 10/01/22 09:25 Respiratory Rate 15 10/01/22 09:25 Blood Pressure 126/86 10/01/22 09:25 Pulse Oximetry 99 10/01/22 09:25 Oxygen Delivery Method 10/01/22 09:25 Course Orders Ordered: Discontinued Medications Sodium Chloride (Normal Saline 0.9%) 1,000 mls @ 1,000 mls/hr IV BOLUS ONE Stop: 10/01/22 12:23 Last Infusion: 10/01/22 13:07 Dose: 0 mls/hr Documented By: Admin: 10/01/22 11:46 Dose: 1,000 mls/hr Documented By: GUADALUPE Consultations Consultation #1: Discussed with patient's primary care provider, reviewed prior visits and discussed a plan moving forward. We sure the opinion that there are some subtle abnormalities and today's labs but nothing significant that would require a specific or immediate intervention. Ongoing concern for possible medication reaction and erythema multiform. Will follow closely in the office, no ongoing use of antibiotics at this time Vital Signs Vital signs: Vital Signs - 8 hr 10/01/22 09:25 10/01/22 09:27 10/01/22 09:27 Temperature 98.2 F Pulse Rate 82 80 Respiratory Rate 15 Blood Pressure 126/86 126/86 Pulse Oximetry 99 98 Oxygen Delivery Method Room Air 10/01/22 09:30 10/01/22 09:30 10/01/22 10:00 Temperature Pulse Rate 80 Respiratory Rate Blood Pressure 116/71 129/83 Pulse Oximetry 99 Oxygen Delivery Method 10/01/22 10:00 Temperature Pulse Rate 81 Respiratory Rate Blood Pressure Pulse Oximetry 98 Oxygen Delivery Method Medical Decision Making Lab Data Result diagrams: 10/01/22 10:00 10/01/22 10:00 Labs: Lab Results 10/01/22 10/01/22 10/01/22 Range/Units 10:00 10:00 10:00 WBC 10.3 (4.5-11.0) X10^3/uL RBC 4.71 (4.5-5.9) X10^6/uL Hgb 14.1 (13.5-17.5) g/dL Hct 41.5 (41-53) % MCV 88.1 (80-100) fL MCH 29.9 (26-34) PG MCHC 33.9 (30-36) % RDW 14.1 (11.6-14.8) % Plt Count 317 (150-400) X10^3/uL Neut % (Auto) 74.4 (50-75) % Lymph % (Auto) 10.9 L (25-40) % [place] % (Auto) 14.0 (3-14) % Eos % (Auto) 0.2 L (2-4) % Baso % (Auto) 0.5 (0-2) % Neut # (Auto) 7700 H (9385-1378) /uL Lymph # (Auto) 1100 (7128-4493) /uL [place] # (Auto) 1400 H (0-900) /uL Eos # (Auto) 0 (0-450) /uL Baso # (Auto) 0 (0-100) /uL PT 15.3 H (10.1-12.7) SECONDS INR 1.3 (0.9-1.3) APTT 33 (26-36) SECONDS Sodium 135 L (137-145) mmol/L Potassium 4.4 (3.4-5.1) mmol/L Chloride 101 (98-107) mmol/L Carbon Dioxide 26 (22-32) mmol/L BUN 24 H (9-20) mg/dL Creatinine 1.26 H (0.66-1.25) mg/dL Estimated GFR 60 (>60) mL/min BUN/Creatinine Ratio 19.0 (6-22) Glucose 104 (80-110) mg/dL Calcium 9.2 (8.4-10.2) mg/dL Magnesium 2.2 (1.6-2.3) mg/dL Total Bilirubin 0.9 (0.2-1.3) mg/dL AST 21 (17-59) IU/L ALT 32 (<50) IU/L Alkaline Phosphatase 110 (38-126) U/L Total Creatine Kinase 40 L (55-170) U/L CK-MB (CK-2) TNP CK-MB (CK-2) Rel Index TNP Troponin I 0.026 (0.01-0.034) ng/mL Total Protein 7.0 (6.3-8.2) g/dL Albumin 3.7 (3.5-5.0) g/dL Globulin 3.3 (1.7-4.1) g/dL Albumin/Globulin Ratio 1.1 (1.0-2.8) Lipase 49 (23-300) U/L SARS-CoV-2 (PCR) (Negative) Influenza A (RT-PCR) (NEGATIVE) Influenza B (RT-PCR) (NEGATIVE) RSV (PCR) (Negative) 10/01/22 Range/Units 11:47 WBC (4.5-11.0) X10^3/uL RBC (4.5-5.9) X10^6/uL Hgb (13.5-17.5) g/dL Hct (41-53) % MCV (80-100) fL MCH (26-34) PG MCHC (30-36) % RDW (11.6-14.8) % Plt Count (150-400) X10^3/uL Neut % (Auto) (50-75) % Lymph % (Auto) (25-40) % [place] % (Auto) (3-14) % Eos % (Auto) (2-4) % Baso % (Auto) (0-2) % Neut # (Auto) (5008-0576) /uL Lymph # (Auto) (0147-2084) /uL [place] # (Auto) (0-900) /uL Eos # (Auto) (0-450) /uL Baso # (Auto) (0-100) /uL PT (10.1-12.7) SECONDS INR (0.9-1.3) APTT (26-36) SECONDS Sodium (137-145) mmol/L Potassium (3.4-5.1) mmol/L Chloride (98-107) mmol/L Carbon Dioxide (22-32) mmol/L BUN (9-20) mg/dL Creatinine (0.66-1.25) mg/dL Estimated GFR (>60) mL/min BUN/Creatinine Ratio (6-22) Glucose (80-110) mg/dL Calcium (8.4-10.2) mg/dL Magnesium (1.6-2.3) mg/dL Total Bilirubin (0.2-1.3) mg/dL AST (17-59) IU/L ALT (<50) IU/L Alkaline Phosphatase (38-126) U/L Total Creatine Kinase (55-170) U/L CK-MB (CK-2) CK-MB (CK-2) Rel Index Troponin I (0.01-0.034) ng/mL Total Protein (6.3-8.2) g/dL Albumin (3.5-5.0) g/dL Globulin (1.7-4.1) g/dL Albumin/Globulin Ratio (1.0-2.8) Lipase (23-300) U/L SARS-CoV-2 (PCR) Negative (Negative) Influenza A (RT-PCR) Flu a negative (NEGATIVE) Influenza B (RT-PCR) Flu b negative (NEGATIVE) RSV (PCR) Negative (Negative) MDM Narrative Medical decision making narrative: 72M former smoker with history of hypertension and hyperlipidemia presents with his chief complaint of ongoing nonpruritic, blanching rash on his back and general feeling of malaise. Multiple etiologies for patient's symptoms considered including: [Tick-borne illness, erythema multiform due to medication or other viral infection, viral respiratory infection, dehydration, versus other Prior charts from primary care visit and walk-in clinic have been reviewed Consultation with primary care provider and independent review of case considered Labs reviewed and no a slight bump in creatinine, patient had been given a L of fluid and feeling improvement. Very subtle increase in white blood cells with some increase in various cell lines considered, no obvious infection to treat at this time PCP office called at the end of visit and have an appointment for patient tomorrow at 9:45 a.m. Patient's symptoms improved over duration of stay with above-stated therapies. Findings and discharge diagnosis discussed with patient/family followed by verbalization of understanding of diagnosis and plan Return precautions discussed with patient/family whom verbalize understanding. Discharge Plan Departure Patient Disposition: Home Clinical Impression: Erythema multiforme Instructions: DI for Erythema Multiforme Activity Restrictions/Additional Instructions: *You have been diagnosed with [erythema multiform type rash possibly related to antibiotics versus viral infection,] *What to do: * please discontinue the use of antibiotics, this is based on my conversation with Dr. Hyman, otherwise, please continue to take your regular medications as directed. [ ] New medication prescriptions sent to your pharmacy: [ ] [ ] New medication written as a paper prescription [ ] No new medications given *Please follow up with your primary care provider in 2-3 days, call for an appointment. Let them know you were seen in the Emergency Department and that we ask that you be seen in follow up. We will electronically transmit a record of today's note if your PCP is in our system *Return to Emergency Department if you should have any new, worsening or concerning symptoms, such as [fever greater than 101 F, shaking chills, worsening pain, persistent vomiting or other bothersome symptoms] Prescriptions: No Action triamcinolone acetonide 0.5 % ointment 1 applic topical TID Qty: 15 0RF doxycycline hyclate 100 mg tablet 100 mg PO BID Qty: 14 0RF tramadol 50 mg tablet 50 mg PO DAILY PRN (Reason: Pain) Label Comments: TAKE 1 TABLET BY MOUTH EVERY 6 HOURS NEEDED ibuprofen 200 mg Capsule 400 mg PO BID PRN (Reason: Pain) chlorpheniramine maleate [ChlorTabs] 4 mg tablet 4 mg PO DAILY PRN (Reason: Allergies) acetaminophen 500 mg Tablet 1,000 mg PO Q6H PRN (Reason: Pain) amlodipine 5 mg Tablet 5 mg PO DAILY lovastatin 20 mg Tablet 20 mg PO BEDTIME Referrals: Rigoberto Hyman MD [Primary Care Provider] - Visit Report Forms: Patient Portal/API
[2022-10-01 10:51] LABS: Troponin I 0.026 ng/mL (0.01-0.034)
[2022-10-01] MEDS: SODIUM CHLORIDE 0.9% 1,000 ML 1000 ML IV (11:46)
[2022-10-01 12:30] LABS: Influenza A - CEPHEID Flu A NEGATIVE (NEGATIVE); Influenza B - CEPHEID Flu B NEGATIVE (NEGATIVE); Respiratory Syncytial Virus Negative (Negative)
[2022-10-01 13:14] LABS: COVID-19 CEPHEID 4-PLEX PCR Negative (Negative)
== END 2022-10-01 13:55 | disposition home or self-care (01) ==
PROVIDERS: Emergency Provider Emergency Medicine; PCP Internal Medicine
DX: L51.9 Erythema multiforme, unspecified (principal); R03.1 Nonspecific low blood-pressure reading; R53.81 Other malaise
CPT/HCPCS: 0241U; 36415; 71045; 80053; 82550; 83690; 83735; 84484; 85025; 85610; 85730; 93005; 93010; 99284

== ENCOUNTER → 2022-10-17 07:49 | Outpatient (CLI) | payer MEDICARE, OTHER, SELFPAY ==
[2018-09-06 16:16] VITALS: BMI 24.3
[2022-10-17 09:10] LABS: Hematocrit 42.3 % (41-53); Hemoglobin 14.3 g/dL (13.5-17.5); Mean Corpuscular HGB Conc 33.7 % (30-36); Mean Corpuscular Hemoglobin 29.5 PG (26-34); Mean Corpuscular Volume 87.4 fL (80-100); Platelet Count 183 X10^3/uL (150-400); Red Blood Cell Count 4.85 X10^6/uL (4.5-5.9); Red Cell Distribution Width 13.8 % (11.6-14.8); White Blood Cell Count 9.4 X10^3/uL (4.5-11.0)
[2022-10-17 09:29] LABS: Alanine Aminotransferase 44 IU/L (<50); Albumin 3.9 g/dL (3.5-5.0); Albumin Globulin Ratio 1.1 (1.0-2.8); Alkaline Phosphatase 99 U/L (38-126); Aspartate Aminotransferase 37 IU/L (17-59); BUN Creatinine Ratio 16.1 (6-22); Bilirubin Total 1.2 mg/dL (0.2-1.3); Blood Urea Nitrogen 20 mg/dL (9-20); C-Reactive Protein Quant 8.4 mg/dL (<1.0); Carbon Dioxide 27 mmol/L (22-32); Chloride 101 mmol/L (98-107); Creatine Kinase 45 U/L (55-170); Estimated Glomerular Filt Rate > 60 mL/min (>60); Globulin 3.6 g/dL (1.7-4.1); Glucose 99 mg/dL (80-110); HEMOLYSIS < 15 (0-50); Sodium 138 mmol/L (137-145); Total Protein 7.5 g/dL (6.3-8.2)
[2022-10-17 09:31] LABS: Rheumatoid Factor < 8.6 IU/mL (<12.0)
[2022-10-17 09:35] LABS: Erythrocyte Sedimentation Rate 45 MM/HR (0-15)
[2022-10-18 07:17] LABS: Complement C3 137 mg/dL (82-167)
[2022-10-20 13:16] LABS: Aldolase 4.3 U/L (3.3-10.3)
[2022-10-20 15:37] LABS: CCP Antibodies IgG/IgA 4 units (0-19)
[2022-10-21 15:21] LABS: ANA Screen, IFA Negative (.)
[2022-10-22 00:36] LABS: Complement Total CH50 59 U/mL (>41)
[2022-10-26 13:37] LABS: Atypical P-ANCA Titer <1:20 titer (Neg:<1:20); C-ANCA Titer <1:20 titer (Neg:<1:20); P-ANCA Titer <1:20 titer (Neg:<1:20)
[2022-11-10 14:52] LABS: Antimyeloperoxidase AB <0.2
[2022-11-10 14:53] LABS: Antiproteinase 3 AB <0.2
== END ==
PROVIDERS: PCP Internal Medicine; Referring Provider Internal Medicine; Visit Provider Internal Medicine
DX: I77.6 Arteritis, unspecified (principal); L51.9 Erythema multiforme, unspecified; R21 Rash and other nonspecific skin eruption; M33.90 Dermatopolymyositis, unspecified, organ involvement unspecified
CPT/HCPCS: 36415; 80053; 82085; 82550; 83520; 85027; 85651; 86038; 86140; 86160; 86162; 86200; 86256; 86430

== ENCOUNTER → 2023-06-14 15:11 | Outpatient (CLI) | payer MEDICARE, OTHER, SELFPAY ==
[2018-09-06 16:16] VITALS: BMI 24.3
--- NOTE | 2023-06-14 15:12 | DI.RAD.S_ITS ---
PROCEDURE: XR CHEST 2V INDICATIONS: left chest pain, no trauma TECHNIQUE: 2 views of the chest were acquired. COMPARISON: [facility], , XR CHEST 1V, 10/01/2022, 10:02. FINDINGS: Surgical changes and devices: None. Lungs and pleura: Lungs are clear. No pleural effusions or pneumothorax. Mediastinum: Mediastinal contours are normal. Heart size is normal. Bones and chest wall: No suspicious bony abnormalities. Soft tissues appear unremarkable. IMPRESSION: No acute cardiopulmonary pathology. Dictated by: Sky Licona M.D. on 06/14/2023 at 16:43 Approved by: Sky Licona M.D. on 06/14/2023 at 16:44
== END ==
PROVIDERS: PCP Internal Medicine; Referring Provider Internal Medicine; Visit Provider Internal Medicine
DX: R07.89 Other chest pain (principal)
CPT/HCPCS: 71046

== ENCOUNTER → 2023-10-06 07:39 | Outpatient (CLI) | payer MEDICARE, OTHER, SELFPAY ==
[2018-09-06 16:16] VITALS: BMI 24.3
[2023-10-06 09:04] LABS: Aspartate Aminotransferase 27 IU/L (17-59); BUN Creatinine Ratio 18.8 (6-22); Blood Urea Nitrogen 18 mg/dL (9-20); Calcium 9.3 mg/dL (8.4-10.2); Carbon Dioxide 31 mmol/L (22-32); Chloride 102 mmol/L (98-107); Cholesterol 129 mg/dL (140-199); Estimated Glomerular Filt Rate > 60 mL/min (>60); Glucose 91 mg/dL (80-110); HDL Cholesterol 53 mg/dL (40-60); HEMOLYSIS < 15 (0-50); LDL Cholesterol Calculated 58 mg/dL (<100); Potassium 4.1 mmol/L (3.4-5.1); Sodium 138 mmol/L (137-145); Triglycerides 90 mg/dL (35-150)
[2023-10-06 09:23] LABS: Prostate Specific Antigen 4.04 ng/mL (0.10-4.00)
== END ==
PROVIDERS: PCP Internal Medicine; Referring Provider Internal Medicine; Visit Provider Internal Medicine
DX: E78.2 Mixed hyperlipidemia (principal); I10 Essential (primary) hypertension
CPT/HCPCS: 36415; 80048; 80061; 84153; 84450

== ENCOUNTER → 2023-10-19 07:50 | Outpatient (CLI) | payer MEDICARE, OTHER, SELFPAY ==
[2018-09-06 16:16] VITALS: BMI 24.3
[2023-10-19 08:35] LABS: Add Manual Diff / Slide Review NO; Basophils Absolute Auto 100 /uL (0-100); Eosinophils Absolute Auto 100 /uL (0-450); Eosinophils Percent Auto 1.8 % (2-4); Hematocrit 48.5 % (41-53); Lymphocytes Absolute Auto 1700 /uL (1100-4500); Mean Corpuscular HGB Conc 33.1 % (30-36); Mean Corpuscular Hemoglobin 29.7 PG (26-34); Mean Corpuscular Volume 89.8 fL (80-100); Monocytes Absolute Auto 700 /uL (0-900); Monocytes Percent Auto 12.7 % (3-14); Neutrophils Absolute Auto 2900 /uL (1500-7000); Neutrophils Percent Auto 53.5 % (50-75); Platelet Count 186 X10^3/uL (150-400); White Blood Cell Count 5.5 X10^3/uL (4.5-11.0)
[2023-10-19 08:50] LABS: Appearance Urine UA CLEAR; Bilirubin Urine UA NEGATIVE (NEGATIVE); Color Urine UA YELLOW; Glucose Urine UA NEGATIVE (Negative); Ketones Urine UA NEGATIVE (NEGATIVE); Leukocyte Esterase Urine UA NEGATIVE (NEGATIVE); Nitrite Urine UA NEGATIVE (Negative); Occult Blood Urine UA NEGATIVE (Negative); Protein Urine UA NEGATIVE (Negative); Specific Gravity Urine UA <=1.005 (1.000-1.035); Urobilinogen Urine UA 0.2 E.U./dL (0.2); pH Urine UA 5.5 (4.5-8.0)
[2023-10-19 08:54] LABS: BUN Creatinine Ratio 17.8 (6-22); Blood Urea Nitrogen 18 mg/dL (9-20); Calcium 9.5 mg/dL (8.4-10.2); Carbon Dioxide 31 mmol/L (22-32); Chloride 100 mmol/L (98-107); Estimated Glomerular Filt Rate > 60 mL/min (>60); Glucose 91 mg/dL (80-110); HEMOLYSIS < 15 (0-50); Potassium 3.8 mmol/L (3.4-5.1); Sodium 138 mmol/L (137-145)
[2023-10-19 09:06] LABS: Bacteria Urine None Seen; Culture Indicated Urine Cult Not Indicated; RBC Urine None Seen (0-5/HPF); Squamous Epithelial Cell Urine None Seen (0-5/HPF); WBC Urine None Seen (0-5/HPF)
== END ==
LOC: LAB 07:51
PROVIDERS: PCP Internal Medicine; Referring Provider Orthopaedic Surgery; Visit Provider Orthopaedic Surgery
DX: Z01.818 Encounter for other preprocedural examination (principal); Z01.812 Encounter for preprocedural laboratory examination; N39.0 Urinary tract infection, site not specified
CPT/HCPCS: 36415; 80048; 81001; 85025; 93005

== ENCOUNTER → 2023-10-25 10:43 | Outpatient (CLI) | payer MEDICARE, OTHER, SELFPAY ==
[2018-09-06 16:16] VITALS: BMI 24.3
--- NOTE | 2023-10-25 | DI.CT.S_ITS ---
PROCEDURE: CT UE RT WO CON INDICATIONS: RIGHT SHOULDER PAIN TECHNIQUE: Noncontrast 1-1.5 mm thick sections acquired from the acromioclavicular joint to the inferior scapula, with coronal and sagittal reformatting. COMPARISON: [facility], MR, MR SHOULDER RT WO CON, 01/30/2022, 9:20. [facility], CR, XR SHOULDER 2+ VIEWS RIGHT, 10/14/2023, 9:14. FINDINGS: Image quality: Excellent. Bones: No acute osseous fracture or dislocation. Moderate joint space narrowing is seen at the glenohumeral joint with subchondral sclerosis and marginal osteophyte formation on both sides of the joint. No significant glenoid version. Humeral head is high riding with narrowing of the acromiohumeral interval measuring 3 mm, with degenerative changes at the inferior acromion. Coracohumeral distance is also narrowed measuring 3 mm. Possible suture tracts at the greater tuberosity versus chronic traction cystic changes. Recommend correlation for prior surgery. Moderate degenerative changes are seen at the acromioclavicular joint. No suspicious intraosseous lesion. Included ribs are intact. Soft tissues: Moderate glenohumeral effusion. A 6 mm ossified loose body is seen posterosuperior to the glenoid. There is atrophy and fatty infiltration of the supraspinatus, infraspinatus, and subscapularis muscle suggesting underlying chronic tendon tearing. The tendons, ligaments, articular cartilages, and labrum are not well evaluated with standard CT. The remaining visualized musculature appears to be intact. No bulky axillary lymphadenopathy. Included portions of the right lung are clear. IMPRESSION: 1. Moderate glenohumeral osteoarthrosis. 2. Moderate glenohumeral effusion is seen with a 6 mm ossified intra-articular loose body. 3. Postsurgical changes are seen from prior rotator cuff tendon repair. There is atrophy and fatty infiltration of the supraspinatus, infraspinatus, and subscapularis muscles. Humeral head is high riding with narrowing of the acromiohumeral and coracohumeral distances. Overall, findings are better evaluated on the prior MRI from 01/30/2022, but recurrent high-grade or full-thickness rotator cuff tendon tearing is not excluded. 4. Moderate acromioclavicular joint osteoarthrosis. Approved by: Khari Santiago M.D. on 10/26/2023 at 9:51
== END ==
LOC: CT 10:44
PROVIDERS: PCP Internal Medicine; Referring Provider Orthopaedic Surgery; Visit Provider Orthopaedic Surgery
DX: M19.011 Primary osteoarthritis, right shoulder (principal); M25.411 Effusion, right shoulder; Z98.890 Other specified postprocedural states
CPT/HCPCS: 73200

== ENCOUNTER 2023-12-02 13:11 | Day surgery (SDC) | payer MEDICARE, OTHER, SELFPAY ==
[2018-09-06 16:16] VITALS: BMI 24.3
[2023-11-25 08:16] VITALS: BMI 27.7
[2023-12-02] VITALS (7 sets, daily range): BP systolic 107–156; BP diastolic 75–114; PULSE 75–87; RESP 14–23; TEMP 36.1–36.3; O2SAT 96–98; BMI 27.7
[2023-12-02] MEDS: LACTATED RINGERS 1,000 ML 42 ML IV ×2 (14:00→16:14)
[2023-12-02] MEDS: ACETAMINOPHEN IV 1,000 MG/100 ML VIAL 400 MG IV (14:01)
--- NOTE | 2023-12-02 14:34 | P.HP_ITS ---
History of Present Illness History of Present Illness Date Patient Seen: 12/02/23 Time Patient Seen: 14:34 Chief complaint: OPB Narrative: Jensen is a pleasant 73-year-old male who I am seeing for evaluation of right glenohumeral arthritis and previous rotator cuff repair. He has had no changes since I last saw him in September. Denies any recent nausea, vomiting, diarrhea, fevers, chills or any other constitutional symptoms. No other complaints at this time. [facility] Medical History (Updated 09/30/23 @ 05:28 by Rigoberto Hyman MD) History of colonic polyps Overweight COVID-19 virus infection (~02/2022) Shoulder pain (~2006) Fractures Mumps Measles Chicken pox Cataracts, bilateral (~2007) Primary osteoarthritis involving multiple joints Allergic rhinitis Primary osteoarthritis, right shoulder Mixed hyperlipidemia Essential hypertension (~2017) Injury of left Achilles tendon Rupture of left patellar tendon Carpal tunnel syndrome of left wrist (~03/2017) Left rotator cuff tear Right rotator cuff tear HTN (hypertension) Seasonal allergies Surgical History History of orthopedic surgery (03/28/21) H/O excision of mass (07/02/22) Anesthesia History of cataract removal with insertion of prosthetic lens History of shoulder surgery History of arthroplasty of right knee (09/06/18) Hx of tonsillectomy S/P cervical spinal fusion (07/31/16) Family History Brother Cancer Social History household members: spouse Smoking Status: Former smoker alcohol intake: current Meds Home Medications and Allergies Home Medications Medication Instructions Recorded Confirmed Type chlorpheniramine maleate 4 mg 4 mg PO DAILY Allergies 03/06/22 11/25/23 History tablet (ChlorTabs) acetaminophen 500 mg tablet 1,000 mg PO Q6H PRN Pain 08/13/22 11/25/23 History amoxicillin 500 mg capsule 2,000 mg (4 x 500 mg) PO ONCE PRN 12/10/22 11/25/23 Rx dental work #4 caps amlodipine 5 mg tablet 5 mg PO DAILY #90 tabs 01/26/23 11/25/23 Rx lovastatin 20 mg tablet 20 mg PO BEDTIME #90 tabs 01/26/23 11/25/23 Rx ibuprofen 200 mg tablet 400 mg PO DAILY PRN Pain 11/25/23 11/25/23 History Allergies Allergy/AdvReac Type Severity Reaction Status Date / Time benzoin [BENZOIN] Allergy Severe RASH Verified 09/30/23 10:46 mupirocin Allergy Severe ITCHING Verified 09/30/23 10:46 oxycodone AdvReac Severe Alters my Verified 09/30/23 10:46 mental state, I lose concentration Review of Systems Review of Systems ROS: Yes All systems reviewed with the patient and are negative except as otherwise documented Exam Vital Signs (past 8 hours): - 12/02/23 13:44 Temperature 97.2 F L Pulse Rate 75 Respiratory Rate 16 Blood Pressure 156/114 H Pulse Oximetry 98 Oxygen Delivery Method Room Air Oxygen Delivery Method Room Air Narrative Exam Narrative: HEENT: Head atraumatic eyes anicteric moist mucous membranes Cardiovascular: Palpable peripheral pulses extremities are warm and well perfused Respiratory: Breathing comfortably on room air Psychiatric: Appropriate mood and affect Neuro: No acute deficits Musculoskeletal: Forward elevation 145 limited by pain, external rotation 30. Sensation intact to light touch in median, radial, ulnar, axillary nerve distributions. Assessment & Plan Assessment & Plan narrative: Assessment: Right shoulder rotator cuff arthropathy Plan: Plan for right reverse total shoulder arthroplasty. Risks and benefits of surgery were discussed again including the risk of infection, damage to internal structures, bleeding, nerve injury, instability, need for revision surgery, blood clots, anesthesia and . No guarantees were made regarding outcomes. Patient expressed understanding and accepted these risks and wished to go forward with surgery and consent was signed.
[2023-12-02] MEDS: CEFAZOLIN 2 GM/100 ML PREMIX 100 ML IV (15:20)
[2023-12-02] MEDS: TRANEXAMIC ACID 1,000 MG VIAL 1000 MG INJ ×2 (15:20→16:45)
--- NOTE | 2023-12-02 15:58 | SUR.OPER ---
Beach chair with [employer] shoulder positioner. Lower body on padded OR bed. Head in foam padded head cradle, secured with straps. Non-operative arm secured <90 degrees abduction. Pillow under knees. Safety belt at thigh. Cloth tape over blanket over lower legs.
[2023-12-02] MEDS: BUPIVACAINE 0.5% (PF) 30 ML, EPINEPHrine 0.15 MG INJ (16:04)
--- NOTE | 2023-12-02 16:59 | P.OP_ITS ---
Operative Date/Time/Diagnoses Date of procedure: 12/02/23 Time of procedure: 16:59 Pre-op diagnosis: Right glenohumeral arthritis Post-op diagnosis: same Procedure & Clinicians Procedure: Right reverse total shoulder arthroplasty Same procedure as scheduled: Yes Indications: Indications: This is a who has rotator cuff arthropathy. Symptoms have been present for years, insidious onset. Patient has failed conservative therapy including injections, physical therapy, anti-inflammatories and activity modification. After extensive discussion in clinic, they wished to go forward with surgery. Risks and benefits were described including the risk of infection, bleeding, damage to internal structures including nerves. We also discussed the risk of failure of surgery and the need for revision surgery as well as the risk of anesthesia. The patient expressed understanding with these risks and wished to go forward with surgery. Surgeon: Armando Emmanuel Corn Shucker: Felicia Fischer Anesthesia Type: General Operative Notes Findings: Findings: Osteoarthritis of the glenoid and humeral head as well as a defient rotator cuff as noted on preoperative imaging and under direct visualization Closure Type: primary Specimen(s): none sent Prosthetic devices, grafts, tissues, transplants, or devices: Tornier implants Base plate: 29 mm, +3 mm offset Glenosphere: 39 mm Stem: Perform 4 Poly: +0 concentric Estimated Blood Loss (mL): 100 Procedure in detail: Patient was seen in the preoperative holding unit. The correct right shoulder was identified and marked with my initials. Again we discussed the risks and benefits of surgery and they wished to go forward with surgery. The patient was brought back to the operating room and placed supine on the operating table. Smooth endotracheal intubation was performed by anesthesia. All prominences were padded and they were placed into the beach chair position. Intravenous antibiotics were given. The right shoulder was then prepped with the standard sterile preparation and draping. A time-out was then performed in my initials were again identified on the correct shoulder. 1 g of IV tranexamic acid was given. A standard deltopectoral incision was made. Skin flaps were made. The cephalic vein was identified and retracted laterally. It did tear under the retractor and so it was tied off. Sharp dissection was made along the deltoid, subacromial and subcoracoid space to release adhesions. The conjoined tendon was identified and the axillary nerve was palpated and continuous using the tug test. It was protected throughout the remainder of the case. A brown retractor was placed underneath the deltoid muscle and a darach retractor underneath the conjoint tendon. The anterior circumflex artery and associated veins on the lower border of the subscapularis were identified and tied off using 0-Vicryl. The biceps tendon was identified in the bicipital groove. This was released from its sheath, and taken from its origin on the glenoid and tied into the pectoralis tendon for a solid tenodesis. We then began a subscapularis peel. The subscapularis was tagged with an Ethibond suture. A 360 degree circumferential release of the subscapularis was performed with protection of the axillary nerve. The coracohumeral ligament was released at the base of the coracoid. The coracoacromial ligament was left intact. The shoulder was then dislocated. Osteophytes were removed using combination of rongeur and osteotome. The rotator cuff was noted to be insufficient. An intramedullary guide was used set at version of 30?. Using an oscillating saw a conservative humeral head cut was made. Impaction reamers were reamed up to a size 4 stem with a built-in angle 135?. A neck protector was placed. Attention was then turned to the glenoid. After retracting the humeral head posteriorly a circumferential release was performed of the capsule with protection of the axillary nerve. The labrum was then released starting at the biceps anchor and going around the rim a small amount of triceps was released from the inferior glenoid. A center guide pin was then placed using the guide, followed by Reamer. After adequate cartilage was removed the center drill hole was drilled and measured. The base plate was then implanted and screwed into place. The superior drill hole was drilled and filled in a nonlocking fashion, followed by the inferior and anterior holes in locking fashion, the posterior hole was also filled. A 39 glenosphere was then selected and screwed into place onto the base plate. Turning back to the humerus, the humeral head was delivered and trialed with a 0 concentric. The arm was taken through range of motion and this was felt to be stable. The trial was then removed and a dilute Betadine wash was then perf ormed with 1 L of sterile saline. Before placing the final implant, drill holes were made in the bicipital groove for the subscapularis repair, and sutures were passed through the drill holes. The final stem was then impacted into the humerus. The shoulder was then reduced and again brought through range of motion and was felt to be stable. The interval was then closed using #2 Ethibond. The subscapularis was then repaired using a modified racking hitch with nice loupes. The deltopectoral interval was then closed with #2 Ethibond. The skin was closed with 2-0 Vicryl and Monocryl followed by Aquacel dressing. Patient was awoken from anesthesia and brought back to the postoperative recovery unit without issue. They were placed into a sling. Assisting participation: This operation could not have been safely performed (without compromising the technical results or length of the procedure) without the assistance of a skilled cardiovascular surgical tech. The cardiovascular surgical tech was medically necessary for proper positioning, retraction and manipulation of instruments, proper exposure, graft prep, and manipulation of tissue. Complications: none Post-operative Condition: stable Disposition: PACU Plan for aftercare: Postoperative instructions: Sling to remain on for 6 weeks. No external rotation past neutral for 6 weeks. Okay for the sling to come off for shower. Okay to shower over the Aquacel dressing. If any water gets underneath the dressing, remove the dressing. First postoperative visit in 2 weeks.
[2023-12-02] MEDS: HYDROCODONE/ACET 5/325 TABLET 1 TAB PO (17:45)
--- NOTE | 2023-12-02 18:00 | DI.RAD.S_ITS ---
PROCEDURE: XR SHOULDER RT 1V INDICATIONS: POST OP TECHNIQUE: 1 views of the shoulder were acquired. COMPARISON: None. FINDINGS: Bones: No fractures or dislocations. Expected postoperative appearance of right reverse shoulder arthroplasty. No suspicious bony lesions. Visualized ribs appear intact. Soft tissues: Overlying postsurgical changes are noted. IMPRESSION: Expected postoperative appearance of right reverse shoulder arthroplasty. Dictated by: Fernando Junior M.D. on 12/03/2023 at 8:40 Approved by: Fernando Junior M.D. on 12/03/2023 at 8:42
== END 2023-12-02 18:05 | disposition home or self-care (01) ==
LOC: OR 13:12 → AC 13:14
PROVIDERS: PCP Internal Medicine; Referring Provider Orthopaedic Surgery; Visit Provider Orthopaedic Surgery
PROC: (CPT 23472; principal; 2023-12-02 15:15)
DX: M19.011 Primary osteoarthritis, right shoulder (principal); G89.18 Other acute postprocedural pain; M25.711 Osteophyte, right shoulder
CPT/HCPCS: 23472; 64415; 73020; C1776; J0136; J0171; J0330; J0690; J1100; J2250; J2405; J2704; J3490

== ENCOUNTER → 2024-10-02 09:49 | Outpatient (CLI) | payer MEDICARE, OTHER, SELFPAY ==
[2018-09-06 16:16] VITALS: BMI 24.3
[2024-10-02 11:39] LABS: Aspartate Aminotransferase 28 IU/L (17-59); BUN Creatinine Ratio 20.2 (6-22); Blood Urea Nitrogen 24 mg/dL (9-20); Calcium 9.6 mg/dL (8.4-10.2); Carbon Dioxide 30 mmol/L (22-32); Chloride 103 mmol/L (98-107); Cholesterol 187 mg/dL (140-199); Estimated Glomerular Filt Rate > 60 mL/min (>60); Glucose 91 mg/dL (80-110); HDL Cholesterol 60 mg/dL (40-60); HEMOLYSIS < 15 (0-50); LDL Cholesterol Calculated 100 mg/dL (<100); Potassium 4.5 mmol/L (3.4-5.1); Sodium 138 mmol/L (137-145); Triglycerides 133 mg/dL (35-150)
[2024-10-02 12:10] LABS: Prostate Specific Antigen 5.29 ng/mL (0.10-4.00)
== END ==
PROVIDERS: PCP Internal Medicine; Referring Provider Internal Medicine; Visit Provider Internal Medicine
DX: I10 Essential (primary) hypertension (principal); N40.1 Benign prostatic hyperplasia with lower urinary tract symptoms; E78.2 Mixed hyperlipidemia; N13.8 Other obstructive and reflux uropathy
CPT/HCPCS: 36415; 80048; 80061; 84153; 84450

== ENCOUNTER → 2025-01-29 06:58 | Outpatient (CLI) | payer MEDICARE, OTHER, SELFPAY ==
[2018-09-06 16:16] VITALS: BMI 24.3
[2025-01-30 12:39] LABS: PSA Free % 30.7 % (.); PSA, Total 4.2 ng/mL (0.0-4.0)
== END ==
PROVIDERS: PCP Internal Medicine; Referring Provider Internal Medicine; Visit Provider Internal Medicine
DX: R97.20 Elevated prostate specific antigen [PSA] (principal)
CPT/HCPCS: 36415; 84153; 84154